=== PATIENT | male | born 1985 | race Caucasian/White ===

== ENCOUNTER 2017-07-25 13:57 | Emergency (ER) | payer SELFPAY ==
[2017-07-25] MEDS ORDERED: Dexamethasone 4 mg/ml Vial ONE (14:36)
== END 2017-07-25 15:31 | disposition home or self-care (01) ==
LOC: ERS 13:57
DX: J04.0 Acute laryngitis (principal); F17.210 Nicotine dependence, cigarettes, uncomplicated
CPT/HCPCS: 87081; 87430; 96372; J1100

== ENCOUNTER 2017-10-02 13:17 | Observation (INO) | payer SELFPAY ==
[2017-10-02] MEDS ORDERED: ISOVUE-370 76%-LOCM 1 ML ONE (13:55)
[2017-10-02 14:16] LABS: #Lymphocytes 1.1 thou/uL (1.20-3.40); #Monocytes 1.5 thou/uL (0.11-0.59); #Neutrophils 8.9 thou/uL (1.40-6.50); %Basophils 0.3 % (0.0-1.0); %Eosinophils 0.1 % (0.0-10.0); %Lymphocytes 9.6 % (21.0-51.0); %Monocytes 12.7 % (0.0-10.0); Hematocrit 49.5 % (42.0-52.0); Red Blood Cell (RBC) Count 5.63 mill/uL (4.70-6.10); White Blood Cell (WBC) Count 11.6 thou/uL (4.8-10.8)
[2017-10-02 14:34] LABS: ALT (SGPT) 22 U/L (8-55); AST (SGOT) 30 U/L (5-34); Alkaline Phosphatase 100 U/L (40-150); Anion Gap 14 mmol/L (10-20); BUN (Urea Nitrogen) 20 mg/dL (8.9-20.6); Bilirubin, Total 0.9 mg/dL (0.2-1.2); Calc. Creatinine Clearance 0 mL/min (70-130); Calcium 9.8 mg/dL (7.8-10.44); Carbon Dioxide 27 mmol/L (22-29); Chloride 95 mmol/L (98-107); Estimated GFR-MDRD 77; Globulin 4.1 g/dL (2.4-3.5); Protein, Total 8.2 g/dL (6.0-8.3)
--- NOTE | 2017-10-02 15:42 | CT ---
CT OF THE NECK SOFT TISSUES WITH CONTRAST 10/02/17 COMPARISON: None. HISTORY: Neck mass. TECHNIQUE: Multiple contiguous axial images were obtained in a CT of the neck with contrast. Sagittal and ramírez l reformats were performed. FINDINGS: There is a hypodense fluid collection in the anterior aspect of the midline of the neck just anterior to the thyroid cartilage and hyoid bone. This measures 4.2 x 2.8 x 2.2 cm in size and consistent wit h an abscess. Surrounding inflammatory changes are seen. Rim enhancement of this fluid collection is seen. No mucosal abnormality seen in the nasopharynx, oropharynx, hypopharynx, or subglottic regions. No si gnificantly enlarged cervical lymph nodes are seen. The visualized lung apices are unremarkable. The bones are unremarkable. The visualized intracranial structures are unremarkable. IMPRESSION: There is a midline neck mass which most likely represents an abscess. The most common cause for an ab scess in this location would be an infected thyroglossal duct cyst. POS: [facility]
[2017-10-02] MEDS ORDERED: Ketorolac Tromethamine 30 MG/ML VIAL ONE (17:29)
[2017-10-02] MEDS ORDERED: Dexamethasone 10 MG/ML VIAL ONE (17:29)
[2017-10-02] MEDS ORDERED: Clindamycin/D5W 900 mg/50 ml Premix Bag ONE (17:29)
[2017-10-02] MEDS ORDERED: Lidocaine 1% w/Epinephrine 1:100K 20 ML VIAL ONE (18:45)
[2017-10-02] MEDS ORDERED: Ondansetron HCl/PF 4 MG/2 ML Vial IVP PRN (20:16)
[2017-10-02] MEDS ORDERED: traMADol HCl 50 MG TAB PO PRN (20:17)
[2017-10-02] MEDS: Sodium Chloride 0.45% 1,000 ML IV SCH (20:41)
[2017-10-02 21:04] VITALS: BMI 22.4
--- NOTE | 2017-10-03 01:10 | HP ---
DATE OF ADMISSION: 10/02/2017 The patient is seen for evaluation of neck swelling. BRIEF HISTORY: This is a gentleman who has had a long history of a mass in his neck which he told th at a thyroglossal duct cyst. It has been quite for the past 15 to 20 years. He reports the past 2 d ays, he had some swelling and some tenderness in that area. He reports having some low grade fevers as well. He report some mild upper respiratory infection preceding this, he was not taking any antib iotics, he reported only taking Motrin and Tylenol otherwise, he presents to the emergency room. CT scan of the neck was performed, which shows a mass, midline of the neck consistent with a thyroglossa l duct cyst with gas bubbles present indicating infection. He denies any airway problems. He denies any dysphagia. He has a 3-year history of hoarseness. He smokes approximately 2 to 3 packs per day as noted his voice is scratchy, but it has remained unchanged in the past few days. PAST MEDICAL HISTORY: Noncontributory. PAST SURGICAL HISTORY: None. ALLERGIES: No known drug allergies. MEDICATIONS: None. FAMILY HISTORY: Noncontributory. SOCIAL HISTORY: 2 to 3 pack per day smoker, social drinker. REVIEW OF SYSTEMS: General: Low-grade fevers, chills, no weight loss. Heme: No history of bleedin g disorders. Cardiovascular: No chest pains, palpitations. Pulmonary: No cough and no wheeze. HE ENT: He has reported a recent upper respiratory tract infection, snotty nose and yellow snot. PHYSICAL EXAMINATION: GENERAL: Patient is resting comfortably in bed. Voice is of harsh quality, no inspiratory or expira tory stridor. NECK: There is some blanching erythema of the skin overlying the anterior mid neck with a 4 x 3 x 2 cm area of fluctuance in the area of thyroglossal duct cyst, no associated lymphadenopathy. Oral cav ity and oropharynx, mucosa is intact. Floor of mouth, base of tongue is soft, no evidence of edema. EARS: TMs intact. Middle ear is well aerated. NOSE: Nasal cavity is clear. HEART: Regular rate and rhythm without murmur. LUNGS: Clear to auscultation. LABORATORY STUDIES: White count of 11.5. TSH and free T4 within normal limits. PROCEDURE: After risks, benefits, and alternatives were discussed, thyroglossal duct cyst needle asp iration was performed. A 1% lidocaine was injected into the overlying skin with a 27 gauge needle an d then an 18 gauge needle was used to aspirate approximately 5 mL of purulence from this cyst cavity. The size of the cyst greatly diminished after this. ASSESSMENT: 1. Thyroglossal duct cyst with acute infection. 2. 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 PLAN: We are going to admit him for IV antibiotics overnight, he received 20 mg of Decadron already. He will be cleared for full liquids. Advance to soft diet tonight. We will reevaluate him tomorro w morning.
[2017-10-03] MEDS: Sodium Chloride 0.45% 1,000 ML IV SCH (01:18)
[2017-10-03] MEDS: Clindamycin/D5W 900 MG in Premix Bag 1 BAG IVPB SCH ×2 (01:18→10:21)
[2017-10-03 05:47] LABS: #Lymphocytes 0.7 thou/uL (1.20-3.40); #Monocytes 0.4 thou/uL (0.11-0.59); #Neutrophils 6.3 thou/uL (1.40-6.50); %Basophils 0.2 % (0.0-1.0); %Lymphocytes 9.2 % (21.0-51.0); %Monocytes 5.5 % (0.0-10.0); Hematocrit 44.3 % (42.0-52.0); Mean Platelet Volume 7.5 fL (7.4-10.4); Red Blood Cell (RBC) Count 4.99 mill/uL (4.70-6.10); White Blood Cell (WBC) Count 7.4 thou/uL (4.8-10.8)
[2017-10-03 12:30] VITALS: TEMP 97.6
[2017-10-03 12:55] VITALS: BP 106/67
--- NOTE | 2017-10-19 13:25 | EKG ---
Test Reason : STAT Blood Pressure : / mmHG Vent. Rate : 056 BPM Atrial Rate : 056 BPM P-R Int : 122 ms QRS Dur : 092 ms QT Int : 448 ms P-R-T Axes : 042 078 070 degrees QTc Int : 432 ms Sinus bradycardia with sinus arrhythmia Otherwise normal ECG No previous ECGs available Confirmed by HOLGER LEONARD MD ([id number]) on 10/19/2017 1:25:09 PM Referred By: MYKE Confirmed By:HOLGER LEONARD MD
== END 2017-10-03 14:20 | disposition home or self-care (01) ==
LOC: ERS 13:17 → SJJU 20:09
PROVIDERS: ADMIT Otolaryngology Plastic Surgery within the Head & Neck; ATTEND Otolaryngology Plastic Surgery within the Head & Neck
DX: Q89.2 Congenital malformations of other endocrine glands (principal); B99.9 Unspecified infectious disease; R49.0 Dysphonia; Z87.891 Personal history of nicotine dependence
CPT/HCPCS: 36415; 36416; 70491; 80053; 84443; 85025; 93005; 93010; 96361; 96365; 96366; 96375; G0378; J1100; J1885; J2001; J3490

== ENCOUNTER 2018-01-09 13:40 | Inpatient (IN) | payer OTHER ==
[~2018-01-09 13:40] MED LIST: Lidocaine 1% PF 5 ML VIAL ONE; Ondansetron HCl/PF 4 MG/2 ML Vial ONE; PHENYLEPHRINE-NS 100 MCG/ML 10 ML SYRINGE ONE; PROPOFOL 200 MG/20 ML VIAL ONE; Succinylcholine Chloride 20 MG/ML 10 ml SYRINGE FS ONE
[2018-01-09] MEDS ORDERED: EPINEPHrine 1 MG/ML AMP ONE (14:22)
[2018-01-09] MEDS ORDERED: Lidocaine 1% w/Epinephrine 1:200K 30 ML VIAL ONE (14:22)
[2018-01-09] MEDS ORDERED: Fentanyl 250 MCG/5 ML VIAL ONE (14:24)
[2018-01-09] MEDS ORDERED: Midazolam HCl 2 mg/2 ml Vial ONE ×2 (14:55→17:23)
[2018-01-09] MEDS ORDERED: Morphine 10 MG/ML VIAL SLOW IVP PRN (17:30)
[2018-01-09] MEDS ORDERED: ALPRAZolam 0.25 MG TAB PO PRN (18:09)
--- NOTE | 2018-01-09 18:28 | PDOC.PN ---
- Subjective Encounter Start Date: 01/09/18 Encounter Start Time: 18:25 Pt seen for management of medical comorbidities, including anxiety. Coughing up blood from tracheostomy site. Unable to answer questions, could not complete ROS. - Objective MAR Reviewed: Yes Vital Signs & Weight: Vital Signs (12 hours) Pulse Ox 01/09/18 17:11 99 Weight Weight 148 lb Phys Exam - Physical Examination Anxious Tracheostomy Respiratory: no wheezing, no rales, no rhonchi, clear to auscultation bilateral Cardiovascular: RRR, no rub Gastrointestinal: soft Neurological: moves all 4 limbs Deviation from normal: appears anxious Dx/Plan (1) Anxiety Code(s): F41.9 - ANXIETY DISORDER, UNSPECIFIED Status: Acute (2) Laryngeal cancer Status: Chronic - Plan * . ENT service recommends anxiolytics, ordered Xanax 0.25 mg PO TID PRN for now, watch for respiratory depression. Pt had apneic spells earlier. Review of Systems - Medications/Allergies Allergies/Adverse Reactions: Allergies Allergy/AdvReac Type Severity Reaction Status Date / Time No Known Drug Allergies Allergy Verified 01/08/18 15:40 Medications: Current Medications Hydrocodone Bitart/Acetaminophen (Hydrocodone-Apap 7.5-325/15) 25 ml PO Q4H PRN PRN Reason: Moderate Pain (4-6) Alprazolam (Xanax) 0.25 mg PO TIDPRN PRN PRN Reason: Anxiety Potassium Chloride/Dextrose/Sod Cl (D5 1/4 Ns W/20 Meq Kcl) 1,000 mls @ 125 mls /hr IV .Q8H CRISTINA Cefazolin Sodium 1 gm/ Syringe (2.5 ml/ Sterile Water) 10 mls @ 120 mls/hr SLOW IVP 1000,1800,2359 [facility] Stop: 01/10/18 18:01 Morphine Sulfate (Morphine) 2 mg SLOW IVP Q2H PRN PRN Reason: Moderate Pain (4-6)
[2018-01-09] MEDS: CEFAZOLIN 1 GM, Syringe 2.5 ML in Sterile Water 7.5 ML SLOW IVP SCH (18:47)
[2018-01-09] MEDS: D5 1/4 NS w/20 mEq KCL 1,000 ML IV SCH (20:00)
[2018-01-09] MEDS ORDERED: CEFAZOLIN 1 GM, Syringe 2.5 ML in Sterile Water 7.5 ML SLOW IVP SCH (22:00)
[2018-01-09] MEDS: Morphine 4 MG/ML VIAL SLOW IVP PRN (22:08)
--- NOTE | 2018-01-09 23:57 | CON ---
DATE OF CONSULTATION: 01/09/2018 Mr. Da Silva is a 32-year-old male He was admitted to the ICU after tracheostomy. Unfortunately, there is no history and physical in the medical record, so I am really not sure what led to his operation. He is unable to give the history because of fresh tracheostomy. I was asked to see him because of his presence in the ICU plus ongoing bleeding , plus most importantly ongoing significant neck pain, his surgical site. PAST MEDICAL HISTORY: Remarkable for a mass in his neck that apparently has been present for quite some time. A note from 2017 showed that he may have a thyroglossal duct cyst with infection back then. He is reportedly a smoker. There is no discharge summary from his admission in 09/2017, so I am really not sure what happened in that admission. ALLERGIES: No reported drug allergies. FAMILY HISTORY: Negative for lung disease. SOCIAL HISTORY: He has smoked up to 3 packs a day. REVIEW OF SYSTEMS: Not obtainable since he can speak. PHYSICAL EXAMINATION: GENERAL: He was tearful when I saw him. His heart rate was in the 70s. Blood pressure 128/81. Respiratory rate was in the teens. Oximetry is 100%. HEENT: Pupils are equal. Sclerae is anicteric. NECK: Supple. He had fresh tracheostomy, fresh blood around his tracheostomy. He was not in any distress. LUNGS: Remarkable for equal breath sounds. LUNGS: Clear. HEART: Regular rhythm. S1 and S2 are normal. ABDOMEN: Soft and nontender. EXTREMITIES: Without clubbing, cyanosis, or edema. NEUROLOGIC: Grossly nonfocal. LABORATORY DATA: White count 7.4, hemoglobin 14.9, platelets 174 this morning. Electrolytes last year were unremarkable except for sodium 131, there are no repeat electrolytes in the medical record system. IMPRESSION: Status post tracheostomy. From medical records, I cannot tell what was done. I will be happy following him while he is in the Critical Care Unit. I have adjusted his pain medicine as 2 mg of morphine likely will not control his pain. Critical care time was 30 minutes excluding procedures. [facility]
[2018-01-10] MEDS: CEFAZOLIN 1 GM, Syringe 2.5 ML in Sterile Water 7.5 ML SLOW IVP SCH ×3 (00:39→18:51)
[2018-01-10] MEDS: Morphine 4 MG/ML VIAL SLOW IVP PRN ×7 (01:42→23:57)
[2018-01-10] MEDS: D5 1/4 NS w/20 mEq KCL 1,000 ML IV SCH ×4 (04:52→23:00)
[2018-01-10] MEDS: Hydrocodone-Acetamin 15 ML UDCUP PO PRN (05:32)
[2018-01-10] MEDS: Nicotine 21 MG PATCH TD SCH (10:03)
[2018-01-10] MEDS: Famotidine 40 MG/4 ML VIAL SLOW IVP SCH (10:48)
[2018-01-10] MEDS ORDERED: ISOVUE-370 76%-LOCM 1 ML ONE (11:35)
--- NOTE | 2018-01-10 11:54 | PRG ---
DATE OF SERVICE: 01/10/2018 Mr. Da Silva is not having any bleeding this morning. He is still very depressed with a flat affect. PHYSICAL EXAMINATION: VITAL SIGNS: Heart rate 65, blood pressure 101/64, respiratory rate 13, oximetry is 99. LUNGS: Lungs are clear. HEART: Regular rhythm. ABDOMEN: Abdomen is soft and nontender. There is no lab today. I discussed Mr. Da Silva his care with his father by phone, although I do not really have any operativ e note that describes the findings in the operation. I have deferred that question to his surgeon. I do think it is appropriate to start him on antidepressants at this point in time, but he is complai corie of being afraid to swallow. It is a nonissue acutely but further down the road in the hospitali zation or discharge an anti-depression probably needs to be considered. He had significant bleeding when he arrived from the OR, so some blood work needs to be done in the morning. Overall, he appears to be stable at this point in time.
--- NOTE | 2018-01-10 15:49 | RAD ---
CHEST 2 VIEWS: Date: 01/10/18 HISTORY: Laryngeal cancer. Evaluate for possible metastasis. COMPARISON: None. FINDINGS: There is evidence of a tracheostomy. There is extensive subcutaneous emphysema. Refer to neck CT for further details. There appears to be air tracking along the mediastinum. Costophrenic angles are clear. No obvious masses or consolidation. No pneumothorax or osseous abnorma lities. IMPRESSION: Extensive subcutaneous emphysema and mediastinal air. Refer to CT for further detail. The aforementio karli air is presumed to be due to recent tracheostomy placement, postop day 1. POS: [facility]
--- NOTE | 2018-01-10 16:09 | CT ---
EXAM: PRE AND POSTCONTRAST SOFT TISSUE NECK CT 06/12/18 COMPARISON: 10/02/17 HISTORY: Neck mass. Tumor. Postoperative day 1 from placement of tracheostomy. FINDINGS: The visualized brain parenchyma is unremarkable. Bilateral ocular lenses are appropriately located. B oth globes are intact. Retrobulbar fat is preserved. Symmetric attenuation of the optic nerve and ocu lar rectus muscles. There is mucosal disease of the left sphenoid sinus. Aerodigestive tract is patent. There is no mucosal abnormality. epiglottis has a normal caliber. Pree piglottic fat is preserved. Posterior to the hyoid bone and anterior to the false and true focal cord s is heterogeneous enhancement and fluid attenuation/edema. There is abnormal attenuation of the soft tissues adjacent to the thyroid cartilage. There is abnormal attenuation involving the anterior neck subcutaneous fat and soft tissues. Drainable abscess is not appreciated at this time. Symmetric attenuation of the sternocleidomastoid muscles. Symmetric attenuation of the parotid and submandibular glands. Thyroid gland is unremarkable. No evidence of lymphadenopathy by size criteria. There is extensive subcutaneous emphysema involving multiple compartments of the anterior and posteri or neck. Subcutaneous emphysema extends inferiorly into the upper mediastinum. There is abnormal density in the anterior mediastinum which is nonspecific tracheostomy is noted with the distal tip in the proximal thoracic inlet. Central spinal canal is patent. No significant central canal stenosis or foraminal narrowing. IMPRESSION: 1. Interval placement of a tracheostomy which appears to be appropriately positioned within the trachea at the level of the thoracic inlet. Extensive soft tissue emphysema. Emphysema may be postope rative in nature. Correlate clinically. Short term followup chest radiograph is recommended to assess for resolution or progression of subcutaneous emphysema. 2. Soft tissue swelling and areas of abnormal enhancement and edema involving the anterior neck soft tissues as well the larynx. Post treatment changes are favored. Residual tumor in these regions cannot be excluded. A drainable abscess is not appreciated. Results of the study discussed with Dr. Pro, 01/10/18 at 3:52 p.m. POS: [facility]
--- NOTE | 2018-01-10 17:24 | PDOC.PN ---
- Subjective Encounter Start Date: 01/10/18 Encounter Start Time: 09:40 Pt seen for followup re: anxiety. Answering questions by nodding or shaking head. Appears calm. No chest pain, shortness of breath, fevers, chills, nausea or vomiting. - Objective MAR Reviewed: Yes Vital Signs & Weight: Vital Signs (12 hours) Temp Pulse Resp Pulse Ox 01/10/18 12:00 97.6 F 01/10/18 08:00 97.7 F 69 12 100 01/10/18 07:59 99 Weight Admit Weight 134 lb 14.766 oz Weight 138 lb 0.15 oz Most Recent Monitor Data Heart Rate from ECG 66 NIBP 105/63 NIBP BP-Mean 73 Respiration from ECG 11 SpO2 100 I&O: 01/09/18 01/10/18 01/11/18 06:59 06:59 06:59 Intake Total 859 1051 Output Total 525 1750 Balance 334 -699 Result Diagrams: 01/13/18 04:48 01/13/18 04:48 EKG Reviewed by me: Yes (Tele: NSR) Phys Exam - Physical Examination Constitutional: NAD Tracheostomy Neck: supple Respiratory: clear to auscultation bilateral Cardiovascular: RRR Gastrointestinal: soft Musculoskeletal: no edema Neurological: moves all 4 limbs Psychiatric: normal affect Dx/Plan (1) Anxiety Code(s): F41.9 - ANXIETY DISORDER, UNSPECIFIED Status: Acute Comment: continue Xanax PRN (2) Laryngeal cancer Status: Chronic - Plan * . Review of Systems - Medications/Allergies Allergies/Adverse Reactions: Allergies Allergy/AdvReac Type Severity Reaction Status Date / Time No Known Drug Allergies Allergy Verified 01/08/18 15:40 Medications: Current Medications Hydrocodone Bitart/Acetaminophen (Hydrocodone-Apap 7.5-325/15) 25 ml PO Q4H PRN PRN Reason: Moderate Pain (4-6) Last Admin: 01/10/18 05:32 Dose: 25 ml Alprazolam (Xanax) 0.25 mg PO TIDPRN PRN PRN Reason: Anxiety Famotidine (Pepcid) 20 mg SLOW IVP DAILY CRISTINA Last Admin: 01/10/18 10:48 Dose: 20 mg Potassium Chloride/Dextrose/Sod Cl (D5 1/4 Ns W/20 Meq Kcl) 1,000 mls @ 125 mls /hr IV .Q8H [facility] Last Admin: 01/10/18 12:53 Dose: 1,000 mls Cefazolin Sodium 1 gm/ Syringe (2.5 ml/ Sterile Water) 10 mls @ 120 mls/hr SLOW IVP 1000,1800,2359 [facility] Stop: 01/10/18 18:01 Last Admin: 01/10/18 10:03 Dose: 10 mls Morphine Sulfate (Morphine) 4 mg SLOW IVP Q1H PRN PRN Reason: Pain Last Admin: 01/10/18 16:19 Dose: 4 mg Nicotine (Nicoderm Patch) 21 mg TD DAILY [facility] Last Admin: 01/10/18 10:03 Dose: 21 mg Sodium Chloride (Flush - Normal Saline) 10 ml IVF Q12HR [facility] Last Admin: 01/10/18 08:47 Dose: 10 ml Sodium Chloride (Flush - Normal Saline) 10 ml IVF PRN PRN PRN Reason: Saline Flush
[2018-01-10] MEDS ORDERED: CEFAZOLIN 1 GM, Syringe 2.5 ML in Sterile Water 7.5 ML SLOW IVP SCH (18:15)
--- NOTE | 2018-01-10 18:31 | CON ---
DATE OF CONSULTATION: 01/10/2018 REASON FOR CONSULTATION: Mr. Da Silva is a 32-year-old gentleman who has been diagnosed with a possib le malignancy involving the neck and larynx. I was asked to see him to discuss his treatment options . HISTORY OF PRESENT ILLNESS: Mr. Da Silva is not able to give history because of his recent tracheosto my. In September, he presented to the emergency room with a mass that he had in the neck. Apparently , he had had it for quite some time. It did become tender and swollen and had some low grade fevers and so he presented to the ER and he underwent a CT scan of the neck in September which showed a mass in the anterior neck that measured 4.2 x 2.8 x 2.2 cm. This had rim enhancement with an internal flu id collection and surrounding inflammatory changes. This was felt to be most consistent with an absc ess from an infected thyroglossal duct cyst. He was admitted to the hospital and he did have aspirat ion and apparently purulent material had been obtained and the neck mass got smaller. He apparently was discharged home on antibiotics. There is no discharge summary in the hospital EMR, so it is uncl ear what the follow up was at that time. The patient is not able to give history because of his rece nt tracheostomy. He apparently was seen by Dr. Pro recently because of this neck mass. 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 Yesterday, he underwent a laryngoscopy and tracheostomy. I do no t have the operative report, but pictures that are in the chart show a mass involving the anterior as pect of the larynx with narrowing of the airway. Biopsies were performed from the neck mass and thos e are currently pending. He just underwent a CT scan prior to my seeing him. I have been asked to s ee him to discuss his options for treatment. Presently, his only complaint is of pain in the neck. The nurse reports that the patient stated it mostly felt like bad reflux. PAST MEDICAL HISTORY: The patient denies other medical or surgical problems. MEDICATIONS: Cefazolin, hydrocodone p.r.n., morphine p.r.n., Nicoderm patch, and IV fluids. ALLERGIES: No known medical allergies. SOCIAL HISTORY: The patient was smoking up to 3 packs per day. He stopped smoking prior to his admi ssion. He has no alcohol use. He lives in [place], [place]. He lives with his stepfather. He is uninsu red. FAMILY HISTORY: Negative for malignancy. REVIEW OF SYSTEMS: Remainder of review of system is otherwise negative. PHYSICAL EXAMINATION: VITAL SIGNS: Height 5 feet 11 inches, weight 138 pounds, blood pressure is 119/63, pulse is 67, resp irations are 13, temperature was 97.6. GENERAL: He is alert and oriented, and in mild discomfort in the neck. Breathing is not labored. K arnofsky performance status is 70%. EYES: Pupils equal, round, reactive to light. Extraocular movements are intact. ENT: Oral cavity and oropharynx normal without lesion or erythema. Palate elevates symmetrically. Gingiva is intact. Dentition is fair. NECK: Without preauricular, submandibular, cervical, or supraclavicular adenopathy. He does have an anterior neck mass that is firm and does not have discrete borders. Involves much of the anterior n erma. Just below this is a tracheostomy that appears to be healing well. There is no thyromegaly. L arynx midline. LUNGS: Breathing nonlabored. Clear to auscultation. HEART: Regular rate and rhythm without murmur. ABDOMEN: No lower extremity edema. Radial and pedal pulses are good. LYMPHATIC: No axillary or inguinal adenopathy. ABDOMEN: Bowel sounds present. Soft, nontender, nondistended, without mass or hepatosplenomegaly. Liver percussed to normal size. SKIN: Without rash or purpura. NEUROLOGIC: Cranial nerves II-XII grossly intact. Motor strength 5/5 in both upper and lower extrem ities in all muscle groups tested. Reflexes are normal and symmetrical. Gait is normal. RADIOLOGIC: CT scan from 10/02/2017 was personally reviewed and did show a rim enhancing mass with f luid density in the anterior tissues of the neck. There is no other adenopathy and did not appear to be any mass lesion involving the larynx at that time. CT scan performed just prior to seeing him on 01/10/2018 was also personally reviewed. There was a heterogeneous enhancing mass involving the ant erior neck and involving the larynx. It is anterior to the false and true cords. There was abnormal attenuation of the soft tissues adjacent to the thyroid cartilage. No evidence of lymphadenopathy w as seen. LABORATORY: No recent lab work is in the hospital record system. CBC from 09/2017 revealed white bl ood cell count of 7400 with hemoglobin of 14.9, hematocrit of 44.3, platelet count 174,000. Chemistr y group showed sodium of 131. Again, this is also from September. Electrolytes were otherwise normal . Fine needle aspirate from the anterior neck mass was on 01/07/2018 was highly suspicious for squam ous cell carcinoma. ASSESSMENT: Mr. Da Silva is a 32-year-old gentleman who likely has a malignancy involving the anterio r neck. Even though he has a long history of smoking, it is not certain that this actually represent s a laryngeal cancer. Given the history, I think most likely this represents a malignancy involving the anterior neck, possibly from a degenerated thyroglossal duct cyst that has grown down into the la rynx and was causing airway compromise. He has a tracheostomy placement. There is no apparent adeno isael on the CT scan. PLAN: He will get supportive care for the time being. We are waiting the results of his pathology b efore final decision can be made regarding treatment. He is going to be seen by medical oncology. L misael, the treatment is going to involve chemotherapy and radiation. Surgery would likely not be a g ood option as this would require an extensive resection, removing the larynx and the skin of the ante rior neck and subsequent reconstructive surgery for closure. Complicating all of this is the fact th at the patient has no insurance. We will follow the patient with you and we will make recommendation s as we get the pathology report. We will discuss the case with Medical Oncology as well. The patie nt will likely be presented at our multimodality cancer conference. Thank you for this interesting consultation.
[2018-01-11 02:20] VITALS: BMI 19.2
[2018-01-11] MEDS: Morphine 4 MG/ML VIAL SLOW IVP PRN ×2 (04:17→08:30)
[2018-01-11 05:08] LABS: Anion Gap 10 mmol/L (10-20); BUN (Urea Nitrogen) 7 mg/dL (8.9-20.6); Calc. Creatinine Clearance 109 mL/min (70-130); Calcium 9.5 mg/dL (7.8-10.44); Carbon Dioxide 31 mmol/L (22-29); Chloride 96 mmol/L (98-107); Estimated GFR-MDRD Greater than 90; Glucose 98 mg/dL (70-105); Potassium 4.3 mmol/L (3.5-5.1); Sodium 133 mmol/L (136-145)
[2018-01-11 05:23] LABS: Hemoglobin 14.5 g/dL (14.0-18.0); Lymphocytes 8 % (21-51); MDiff Complete? YES; Mean Corpuscular HGB CONC 32.5 g/dL (32.0-36.0); Mean Corpuscular Hemoglobin 28.7 pg (27.0-31.0); Mean Corpuscular Volume 88.3 fl (80.0-94.0); Mean Platelet Volume 6.3 fL (7.4-10.4); Monocytes 6 % (0-10); Neutrophil 86 % (42-75); PLT Morphology Comment Appears Adequate; Platelet Count 268 thou/uL (130-400); RBC Morphology Normal; Red Blood Cell (RBC) Count 5.06 mill/uL (4.70-6.10); White Blood Cell (WBC) Count 11.2 thou/uL (4.8-10.8)
[2018-01-11] MEDS: Famotidine 40 MG/4 ML VIAL SLOW IVP SCH (08:32)
[2018-01-11] MEDS: Nicotine 21 MG PATCH TD SCH (08:34)
--- NOTE | 2018-01-11 11:18 | PRG ---
DATE OF SERVICE: 01/11/2018 SUBJECTIVE: He is sleeping. When awakened, he indicates that he is in no distress. OBJECTIVE: VITAL SIGNS: Temperature 98.4, pulse 92, respirations 12, O2 sat 100% on 5 liters, and blood pressur e 110/77. HEENT: Unremarkable. NECK: Trach in position with swelling around tracheostomy site. LUNGS: Clear. CARDIAC: S1 and S2, regular. ABDOMEN: Soft. EXTREMITIES: No edema. LABORATORY DATA: Sodium 132, potassium 4.3, chloride 96, CO2 of 31, BUN 7, creatinine 0.8, glucose 9 8. White blood cell count 11.2, hematocrit 44, and platelet count 268. ASSESSMENT: 1. Status post tracheostomy. 2. Neck malignancy - I think pathology is back. PLAN: Pulmonary status is currently stable. I appreciate care for other consultants involved in the case. No new recommendations at this time.
[2018-01-11] MEDS: Hydrocodone-Acetamin 15 ML UDCUP PO PRN ×3 (12:56→23:49)
--- NOTE | 2018-01-11 16:48 | PDOC.PN ---
- Subjective Encounter Start Date: 01/11/18 Encounter Start Time: 16:46 Subjective: feels Ok. no new complaints. pain controlled - Objective MAR Reviewed: Yes Vital Signs & Weight: Vital Signs (12 hours) Temp Pulse Resp BP Pulse Ox 01/11/18 16:00 98.8 F 71 16 103/68 98 01/11/18 11:00 99 F 99 16 103/69 97 01/11/18 08:00 98.4 F 92 12 01/11/18 07:20 98.4 F 92 12 110/77 100 Weight Admit Weight 134 lb 14.766 oz Weight 138 lb Most Recent Monitor Data Heart Rate from ECG 66 NIBP 105/63 NIBP BP-Mean 73 Respiration from ECG 11 SpO2 100 I&O: 01/10/18 01/11/18 01/12/18 06:59 06:59 06:59 Intake Total 859 2151 Output Total 525 1750 Balance 334 401 Result Diagrams: 01/11/18 04:46 01/11/18 04:46 Phys Exam - Physical Examination Constitutional: NAD HEENT: PERRLA, moist MMs, sclera anicteric, TM's clear, oral pharynx no lesions , 2+ tonsils Neck: no nodes, no JVD, supple, full ROM Respiratory: no wheezing, no rales, no rhonchi, wheezing present, clear to auscultation bilateral Cardiovascular: RRR, no significant murmur Gastrointestinal: soft, non-tender, no distention, positive bowel sounds Musculoskeletal: no edema, pulses present Neurological: non-focal, normal sensation, moves all 4 limbs Psychiatric: normal affect, A&O x 3 Skin: no rash Dx/Plan (1) Tracheostomy hemorrhage Code(s): J95.01 - HEMORRHAGE FROM TRACHEOSTOMY STOMA Status: Acute (2) Anxiety Code(s): F41.9 - ANXIETY DISORDER, UNSPECIFIED Status: Acute Comment: continue Xanax PRN (3) Laryngeal cancer Status: Chronic - Plan DVT proph w/SCDs Repeat pathology pending.HD stable pain controlled. -: PCCM & radiation Oncology following. -: paucity of data w/o any documentation from primary ENT team.no H/P/notes -: no medical issues.will sign off -: cont Xanax prn. call if needed. * . Review of Systems - Review of Systems Constitutional: negative: fever, chills, sweats, weakness, malaise, other ENT: negative: Ear Pain, Ear Discharge, Nose Pain, Nose Discharge, Nose Congestion, Mouth Pain, Mouth Swelling, Throat Pain, Throat Swelling, Other Respiratory: negative: Cough, Dry, Shortness of Breath, Hemoptysis, SOB with Excertion, Pleuritic Pain, Sputum, Wheezing Cardiovascular: negative: chest pain, palpitations, orthopnea, paroxysmal nocturnal dyspnea, edema, light headedness, other Gastrointestinal: negative: Nausea, Vomiting, Abdominal Pain, Diarrhea, Constipation, Melena, Hematochezia, Other Genitourinary: negative: Dysuria, Frequency, Incontinence, Hematuria, Retention , Other Musculoskeletal: negative: Neck Pain, Shoulder Pain, Arm Pain, Back Pain, Hand Pain, Leg Pain, Foot Pain, Other Skin: negative: Rash, Lesions, Michael, Bruising, Other Neurological: negative: Weakness, Numbness, Incoordination, Change in Speech, Confusion, Seizures, Other - Medications/Allergies Allergies/Adverse Reactions: Allergies Allergy/AdvReac Type Severity Reaction Status Date / Time No Known Drug Allergies Allergy Verified 01/08/18 15:40 Medications: Current Medications Hydrocodone Bitart/Acetaminophen (Hydrocodone-Apap 7.5-325/15) 25 ml PO Q4H PRN PRN Reason: Moderate Pain (4-6) Last Admin: 01/11/18 12:56 Dose: 25 ml Alprazolam (Xanax) 0.25 mg PO TIDPRN PRN PRN Reason: Anxiety Famotidine (Pepcid) 20 mg SLOW IVP DAILY [facility] Morphine Sulfate (Morphine) 4 mg SLOW IVP Q1H PRN PRN Reason: Pain Last Admin: 01/11/18 08:30 Dose: 4 mg Nicotine (Nicoderm Patch) 21 mg TD DAILY [facility] Last Admin: 01/11/18 08:34 Dose: 21 mg Sodium Chloride (Flush - Normal Saline) 10 ml IVF Q12HR CRISTINA Last Admin: 01/11/18 08:36 Dose: 10 ml Sodium Chloride (Flush - Normal Saline) 10 ml IVF PRN PRN PRN Reason: Saline Flush Last Admin: 01/10/18 23:58 Dose: 10 ml
[2018-01-11] MEDS: D5 1/4 NS w/20 mEq KCL 1,000 ML IV SCH (17:57)
[2018-01-12 04:30] LABS: Band 2 % (5-11); Eosinophils 2 % (0-10); Lymphocytes 19 % (21-51); MDiff Complete? YES; Mean Corpuscular HGB CONC 32.4 g/dL (32.0-36.0); Mean Corpuscular Hemoglobin 28.1 pg (27.0-31.0); Mean Corpuscular Volume 86.7 fl (80.0-94.0); Mean Platelet Volume 6.4 fL (7.4-10.4); Monocytes 14 % (0-10); Neutrophil 63 % (42-75); PLT Morphology Comment Appears Adequate; Platelet Count 271 thou/uL (130-400); Red Blood Cell (RBC) Count 4.99 mill/uL (4.70-6.10); White Blood Cell (WBC) Count 8.6 thou/uL (4.8-10.8)
[2018-01-12 04:31] LABS: Anion Gap 8 mmol/L (10-20); BUN (Urea Nitrogen) 12 mg/dL (8.9-20.6); Calc. Creatinine Clearance 109 mL/min (70-130); Calcium 9.2 mg/dL (7.8-10.44); Carbon Dioxide 35 mmol/L (22-29); Chloride 100 mmol/L (98-107); Estimated GFR-MDRD Greater than 90; Glucose 82 mg/dL (70-105); Sodium 139 mmol/L (136-145)
[2018-01-12] MEDS: Hydrocodone-Acetamin 15 ML UDCUP PO PRN ×4 (05:36→21:55)
[2018-01-12] MEDS: Nicotine 21 MG PATCH TD SCH (09:11)
[2018-01-12] MEDS: Famotidine/PF 20 mg/2ml Vial SLOW IVP SCH (09:14)
--- NOTE | 2018-01-12 11:02 | PRG ---
DATE OF SERVICE: 01/12/2018 SUBJECTIVE: He seems to be doing well, does not indicate any difficulty with his trach. OBJECTIVE: VITAL SIGNS: Temperature 97.6, pulse 71, respirations 16, O2 sat 99% on tracheostomy collar. HEENT: Unremarkable. NECK: Trach in good position. LUNGS: Clear. CARDIAC: S1 and S2 regular. ABDOMEN: Soft. EXTREMITIES: No edema. LABORATORY DATA: White blood cell count 8.6, hematocrit 43.2, platelet count 271. Sodium 139, potas sium 4, BUN 12, creatinine 0.8, glucose 82. ASSESSMENT: Status post tracheostomy placement for airway compromise related to cancer of the neck a maddy. PLAN: Awaiting pathology, continuing trach suctioning.
[2018-01-13] MEDS: Hydrocodone-Acetamin 15 ML UDCUP PO PRN ×3 (03:00→20:37)
[2018-01-13 05:52] LABS: Anion Gap 13 mmol/L (10-20); BUN (Urea Nitrogen) 10 mg/dL (8.9-20.6); Calc. Creatinine Clearance 116 mL/min (70-130); Calcium 9.1 mg/dL (7.8-10.44); Carbon Dioxide 27 mmol/L (22-29); Chloride 101 mmol/L (98-107); Estimated GFR-MDRD Greater than 90; Glucose 100 mg/dL (70-105); Potassium 4.7 mmol/L (3.5-5.1); Sodium 136 mmol/L (136-145)
[2018-01-13 06:01] LABS: Band 3 % (5-11); Eosinophils 1 % (0-10); Hemoglobin 13.9 g/dL (14.0-18.0); Lymphocytes 25 % (21-51); MDiff Complete? YES; Mean Corpuscular HGB CONC 31.4 g/dL (32.0-36.0); Mean Corpuscular Hemoglobin 27.2 pg (27.0-31.0); Mean Corpuscular Volume 86.4 fl (80.0-94.0); Mean Platelet Volume 6.4 fL (7.4-10.4); Monocytes 6 % (0-10); Neutrophil 63 % (42-75); PLT Morphology Comment Appears Adequate; Platelet Count 300 thou/uL (130-400); RBC Distribution Width 12.9 % (11.5-14.5); RBC Morphology Normal; Reactive Lymphocytes 2 % (0-10); Red Blood Cell (RBC) Count 5.11 mill/uL (4.70-6.10); White Blood Cell (WBC) Count 8.7 thou/uL (4.8-10.8)
[2018-01-13] MEDS: Morphine 4 MG/ML VIAL SLOW IVP PRN (09:18)
[2018-01-13] MEDS: Nicotine 21 MG PATCH TD SCH (09:18)
[2018-01-13] MEDS: Famotidine/PF 20 mg/2ml Vial SLOW IVP SCH (09:18)
--- NOTE | 2018-01-13 14:34 | CON ---
DATE OF CONSULTATION: 01/13/2018 REASON FOR CONSULTATION: Neck mass. HISTORY OF PRESENT ILLNESS: Mr. Da Silva is a 32-year-old male who presented to the emergency room in September with a neck mass. It was tender and swollen. He had fevers. He had a CT scan of the mass at that time, which measured 4.2 x 2.8 x 2.2 cm. He was admitted and started on antibiotics. He was seen by ENT and had aspiration of purulent material from the mass. I do not know if he followed up after discharge on 01/07. He saw Dr. Pro in a clinic. He had a laryngoscopy, which found a cauliflower lesion at the base of the epiglottis and invading the vocal cord. He was sent here and had an emergent trach. Biopsies were done and are currently pending. The patient is recovering from his trach at this time and able to swallow and speak without a Passy-Gillett valve. He denies any complaints except discomfort from the tracheostomy. He denies any recent weight loss. He is a smoker, approximately 3 packs a day. Denies any alcohol use. PAST MEDICAL HISTORY: None. PAST SURGICAL HISTORY: Tracheostomy. ALLERGIES: No known drug allergies. HOME MEDICATIONS: None. FAMILY HISTORY: No family history of head and neck cancer. SOCIAL HISTORY: He is single. A 3-pack a day smoker. No alcohol. 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 REVIEW OF SYSTEMS: Ten-point review of systems is negative except for noted in HPI. PHYSICAL EXAMINATION: VITAL SIGNS: Temperature is 98.5, pulse is 77, respiratory rate 12 and blood pressure is 111/71. He is 100% on room air. GENERAL: A well-developed, well-nourished male in no acute distress. HEENT: Normocephalic and atraumatic. Pupils are equal and reactive to light. NECK: He has a trach midline. CARDIOVASCULAR: Regular rate and rhythm. LUNGS: Clear. ABDOMEN: Soft and nontender. There is no organomegaly. EXTREMITIES: No clubbing, cyanosis or edema. SKIN: No rash. HEMATOLOGIC: There is no petechia or purpura. NEUROLOGIC: Nonfocal. PSYCHIATRIC: The patient is alert and oriented and appropriate. PERTINENT LABORATORY AND X-RAYS: Current WBCs are 8.7, hemoglobin 13.9, hematocrit 44.1 and platelet count is 300. He has got 63% neutrophils, 3% bands and 25% lymphocytes. Sodium is 136, potassium 4.7, chloride 101, CO2 is 27, BUN is 10, creatinine 0.80, glucose [address] showed the anterior neck soft tissue mass. 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 Path is pending. DISCUSSION: The patient will follow up with Dr. Ash in the clinic on 2017 at 9:15 in the morning to discuss treatment options. The corrections caseworker will be notified of the patient to assist with financial issues. He has already been seen by Dr. Lott. Thank you for the consult. ISAURA
--- NOTE | 2018-01-13 14:41 | PRG ---
DATE OF SERVICE: 01/13/2018 SUBJECTIVE: Mr. Da Silva has no complaints. His spirits are little better today. OBJECTIVE: VITAL SIGNS: He is afebrile. Heart rate is 77, respiratory rate is 12, oximetry is 100% on trach co llar and blood pressure 111/71. LUNGS: Clear. He has strong cough and is easily clearing his secretions. IMPRESSION: Status post tracheostomy for head and neck cancer? Pathology is still pending.
[2018-01-14 06:23] LABS: Eosinophils 4 % (0-10); Hemoglobin 14.3 g/dL (14.0-18.0); Lymphocytes 22 % (21-51); MDiff Complete? YES; Mean Corpuscular HGB CONC 32.7 g/dL (32.0-36.0); Mean Corpuscular Volume 85.6 fl (80.0-94.0); Mean Platelet Volume 6.4 fL (7.4-10.4); Monocytes 6 % (0-10); Neutrophil 68 % (42-75); PLT Morphology Comment Appears Adequate; Platelet Count 327 thou/uL (130-400); RBC Distribution Width 12.8 % (11.5-14.5); Red Blood Cell (RBC) Count 5.12 mill/uL (4.70-6.10)
[2018-01-14 06:27] LABS: Anion Gap 13 mmol/L (10-20); BUN (Urea Nitrogen) 15 mg/dL (8.9-20.6); Calc. Creatinine Clearance 116 mL/min (70-130); Calcium 9.7 mg/dL (7.8-10.44); Carbon Dioxide 28 mmol/L (22-29); Chloride 100 mmol/L (98-107); Estimated GFR-MDRD Greater than 90; Glucose 94 mg/dL (70-105); Potassium 4.6 mmol/L (3.5-5.1); Sodium 136 mmol/L (136-145)
[2018-01-14] MEDS: Hydrocodone-Acetamin 15 ML UDCUP PO PRN ×2 (07:42→18:47)
[2018-01-14] MEDS: Nicotine 21 MG PATCH TD SCH (08:33)
[2018-01-14] MEDS: Famotidine/PF 20 mg/2ml Vial SLOW IVP SCH (08:33)
--- NOTE | 2018-01-14 16:12 | PRG ---
DATE OF SERVICE: 01/14/2018 His vital signs are stable. No new problems reported. He did have squamous cell carcinoma. It is u nclear at this time whether or not this is papilloma virus related. His heart rate is 90, respirator y rate is 15, oximetry is 100% on room air, blood pressure is 92/59. There are no new other pertinen t issues at this point in time. He is tentatively scheduled for an evaluation for chemo and radiatio n per my discussion with the nurse practitioner for the oncologists. I will see him as needed in the future.
[2018-01-15 06:07] LABS: Anion Gap 11 mmol/L (10-20); BUN (Urea Nitrogen) 19 mg/dL (8.9-20.6); Calc. Creatinine Clearance 109 mL/min (70-130); Calcium 9.4 mg/dL (7.8-10.44); Carbon Dioxide 29 mmol/L (22-29); Chloride 100 mmol/L (98-107); Estimated GFR-MDRD Greater than 90; Glucose 97 mg/dL (70-105); Potassium 4.9 mmol/L (3.5-5.1); Sodium 135 mmol/L (136-145)
[2018-01-15 06:28] LABS: Eosinophils 2 % (0-10); Hemoglobin 14.4 g/dL (14.0-18.0); Lymphocytes 22 % (21-51); MDiff Complete? YES; Mean Corpuscular HGB CONC 32.3 g/dL (32.0-36.0); Mean Corpuscular Hemoglobin 28.1 pg (27.0-31.0); Mean Corpuscular Volume 86.9 fl (80.0-94.0); Mean Platelet Volume 6.5 fL (7.4-10.4); Monocytes 9 % (0-10); Neutrophil 65 % (42-75); PLT Morphology Comment Appears Adequate; Platelet Count 309 thou/uL (130-400); RBC Distribution Width 12.7 % (11.5-14.5); RBC Morphology Normal; Reactive Lymphocytes 2 % (0-10); Red Blood Cell (RBC) Count 5.11 mill/uL (4.70-6.10)
[2018-01-15] MEDS: Famotidine/PF 20 mg/2ml Vial SLOW IVP SCH (09:13)
[2018-01-15] MEDS: Nicotine 21 MG PATCH TD SCH (09:14)
[2018-01-16 06:12] LABS: Eosinophils 1 % (0-10); Hemoglobin 14.7 g/dL (14.0-18.0); Lymphocytes 21 % (21-51); MDiff Complete? YES; Mean Corpuscular HGB CONC 32.9 g/dL (32.0-36.0); Mean Corpuscular Hemoglobin 28.7 pg (27.0-31.0); Mean Corpuscular Volume 87.3 fl (80.0-94.0); Mean Platelet Volume 6.6 fL (7.4-10.4); Monocytes 6 % (0-10); Neutrophil 70 % (42-75); Platelet Count 317 thou/uL (130-400); RBC Distribution Width 12.8 % (11.5-14.5); Red Blood Cell (RBC) Count 5.13 mill/uL (4.70-6.10); White Blood Cell (WBC) Count 8.4 thou/uL (4.8-10.8)
[2018-01-16 06:19] LABS: Anion Gap 11 mmol/L (10-20); BUN (Urea Nitrogen) 17 mg/dL (8.9-20.6); Calc. Creatinine Clearance 107 mL/min (70-130); Calcium 9.6 mg/dL (7.8-10.44); Carbon Dioxide 29 mmol/L (22-29); Chloride 102 mmol/L (98-107); Estimated GFR-MDRD Greater than 90; Glucose 98 mg/dL (70-105); Sodium 137 mmol/L (136-145)
[2018-01-16] MEDS: Famotidine/PF 20 mg/2ml Vial SLOW IVP SCH (09:39)
[2018-01-16] MEDS: Nicotine 21 MG PATCH TD SCH (09:39)
[2018-01-16 12:14] VITALS: TEMP 98.5
[2018-01-16 15:53] VITALS: BP 113/75
--- NOTE | 2018-01-17 13:02 | OP ---
PREOPERATIVE DIAGNOSES: 1. Obstructive laryngeal lesion. 2. Neck mass. 3. Trending upper airway obstruction. PROCEDURES PERFORMED: 1. Microsuspension laryngoscopy with biopsy. 2. Tracheostomy. FINDINGS: The patient had extensive tumor involving false cords, true vocal cords and laryngeal surf dayna of the epiglottis. This tumor appeared to be almost papillomatous in appearance and multifocal. There also was a firm mass at the anterior aspect of the neck with a draining fistula. PROCEDURE IN DETAIL: After consent was obtained, the patient was identified, brought to the operatin g room and placed on the table in supine position. General endotracheal anesthesia was obtained with some difficulty using a very small #6 endotracheal tube. We then positioned the patient for laryngo scopy. The laryngoscope was placed and suspended from the operating table. We were then able to use Magnified endoscopes to visualize the larynx. Pictures were obtained that revealed the extent of th e tumor, which involved both false cords, both true cords, and the laryngeal surface of the epiglotti s. There seemed to be a papillomatous quality to these masses and they were multifocal in nature. S pecimens were obtained of two sides, the false cords and epiglottic lesion, sent for permanent histol ogic evaluation. We kept the tube in place and turned our attention to the neck, which was prepped a nd draped in a sterile fashion. An incision was made through the skin and subcutaneous tissues in th e region proximal to the inferior aspect of the mass. The skin was incised and the incision was joe ied down through the skin, platysma, and subcutaneous tissues. The thyroid isthmus was identified an d divided in midline, gaining access to the pretracheal plane. This was then dissected and retractor s were placed. The cricoid hook was placed in cricoid and the trachea was elevated from the larynx. We then made an incision in the second endotracheal ring, and then created an inferior based flaps. Trach house calls nurse was then placed and #8 endotracheal cuffed tube was placed with the cuff inflated. T he apparatus was connected and there was good ventilation. The trach was secured with #2-0 silk sutu re and the trach stay tie. The patient was then awakened and taken to the Intensive Care Unit where he recovered prior to transfer to the floor. No complications.
== END 2018-01-16 18:36 | disposition home health service (06) | DRG 12 ==
LOC: SDC 13:40 → CCU 15:00 → SURG A 01-10 16:23
PROVIDERS: ADMIT Specialist; ATTEND Specialist
PROC: 0B110F4 Bypass Trachea to Cutaneous with Tracheostomy Device, Open Approach (ICD-10-PCS; principal; 2018-01-09)
PROC: 0CBR8ZX Excision of Epiglottis, Via Natural or Artificial Opening Endoscopic, Diagnostic (ICD-10-PCS; 2018-01-09)
PROC: 0CBS8ZX Excision of Larynx, Via Natural or Artificial Opening Endoscopic, Diagnostic (ICD-10-PCS; 2018-01-09)
DX: C32.8 Malignant neoplasm of overlapping sites of larynx (principal); J95.01 Hemorrhage from tracheostomy stoma; R06.81 Apnea, not elsewhere classified; C76.0 Malignant neoplasm of head, face and neck; F17.210 Nicotine dependence, cigarettes, uncomplicated; F32.9 Major depressive disorder, single episode, unspecified; Q89.2 Congenital malformations of other endocrine glands; F41.9 Anxiety disorder, unspecified
CPT/HCPCS: 36415; 70492; 71046; 80048; 85007; 85027; 88305; 88342; 94640; A4216; J0171; J0690; J2001; J2250; J2270; J2405; J2704; J3010; S0028

== ENCOUNTER 2018-01-24 13:52 | Emergency (ER) | payer SELFPAY | END 2018-01-24 14:37 | disposition left against medical advice (07) | LOC: SCSER 13:52 | DX: Z53.21 Procedure and treatment not carried out due to patient leaving prior to being seen by health care provider (principal) ==

== ENCOUNTER 2018-01-30 10:18 | Outpatient (CLI) | payer MEDICAID, OTHER, SELFPAY ==
[2018-01-30] MEDS ORDERED: ISOVUE-370 76%-LOCM 1 ML ONE (13:53)
== END 2018-01-30 10:19 | disposition home or self-care (01) ==
LOC: BICCT 10:18
PROVIDERS: ATTEND Internal Medicine Hematology & Oncology
DX: C32.8 Malignant neoplasm of overlapping sites of larynx (principal)
CPT/HCPCS: 71260

== ENCOUNTER 2018-02-03 00:35 | Inpatient (IN) | payer SELFPAY ==
[2018-02-03 01:27] LABS: #Eosinphils 0.1 thou/uL (0.0-0.7); #Lymphocytes 1.6 thou/uL (1.20-3.40); #Neutrophils 16.6 thou/uL (1.40-6.50); %Basophils 0.2 % (0.0-1.0); %Eosinophils 0.3 % (0.0-10.0); %Lymphocytes 8.5 % (21.0-51.0); %Monocytes 5.2 % (0.0-10.0); %Neutrophils 85.9 % (42.0-75.0); Hemoglobin 13.7 g/dL (14.0-18.0); Mean Corpuscular HGB CONC 33.1 g/dL (32.0-36.0); Mean Corpuscular Hemoglobin 28.1 pg (27.0-31.0); Mean Corpuscular Volume 84.9 fl (80.0-94.0); Platelet Count 377 thou/uL (130-400); RBC Distribution Width 12.9 % (11.5-14.5); Red Blood Cell (RBC) Count 4.86 mill/uL (4.70-6.10); White Blood Cell (WBC) Count 19.3 thou/uL (4.8-10.8)
[2018-02-03 01:45] LABS: ALT (SGPT) 8 U/L (8-55); AST (SGOT) 9 U/L (5-34); Albumin 4.1 g/dL (3.5-5.0); Alkaline Phosphatase 94 U/L (40-150); Anion Gap 14 mmol/L (10-20); BUN (Urea Nitrogen) 19 mg/dL (8.9-20.6); Bilirubin, Total 0.2 mg/dL (0.2-1.2); Calc. Creatinine Clearance 0 mL/min (70-130); Calcium 9.6 mg/dL (7.8-10.44); Carbon Dioxide 28 mmol/L (22-29); Chloride 97 mmol/L (98-107); Estimated GFR-MDRD 76; Globulin 3.7 g/dL (2.4-3.5); Glucose 212 mg/dL (70-105); Potassium 4.5 mmol/L (3.5-5.1); Protein, Total 7.8 g/dL (6.0-8.3); Sodium 134 mmol/L (136-145)
[2018-02-03] MEDS ORDERED: Morphine 4 MG/ML VIAL ONE (02:01)
[2018-02-03] MEDS ORDERED: Piperacillin/Tazobactam 4.5 GM VIAL ONE (03:40)
[2018-02-03] MEDS ORDERED: Acetaminophen 325 MG TAB PO PRN (04:23)
--- NOTE | 2018-02-03 04:25 | PDOC.FPRHP ---
- History of Present Illness Chief Complaint: Infected trach History of Present Illness: 32 yo M w/hx of SCC of larynx s/p trach placement apprx 3 weeks ago here with concern for infection associated with the trach. He states that the ostomy has had purulent drainage for the past few days. Associated symptoms include tenderness and redness around the trach site. He denies other symptoms such as SOB, fever, chills, increased work of breathing, cough or wheezing. - Allergies/Adverse Reactions Allergies Allergy/AdvReac Type Severity Reaction Status Date / Time No Known Drug Allergies Allergy Verified 01/08/18 15:40 - Home Medications Medication Instructions Recorded Confirmed Type traMADol HCl [Tramadol HCl] 1 - 2 mg PO Q4HR PRN 01/13/18 01/13/18 History - History PMHx: Laryngeal SCC PSHx: none FHx: none Social: 10+ pack year hx of smoking Denies etoh or recreational drug use - Review of Systems General: denies: fever/chills, weight/appetite/sleep changes Eyes: denies: eye pain, vision changes ENT: denies: nasal congestion Respiratory: denies: cough, congestion, shortness of breath Cardiovascular: denies: chest pain, palpitation, edema Gastrointestinal: denies: nausea, vomiting Genitourinary: denies: dysuria Skin: reports: other (complains of redness on neck around trach with associated tenderness) Musculoskeletal: denies: pain, tenderness Neurological: denies: numbness, syncope Psychological: denies: anxiety - Vital signs BP: 124/75 HR: 121 RR: 20 Tmax: 98.4 Pox: 97% on RA Wt: 62.6 kg - Physical Exam Constitutional: NAD, awake, alert and oriented HEENT: normocephalic and atraumatic, PERRLA, no scleral icterus Neck: FROM, trachea midline, other (trach in place. Purulent drainage around ostomy w/additional draining sinus cephalad to trach. Area of erythema surrounding trach) Chest: no-tender to palpation Heart: normal S1/S2, no murmurs/rubs/gallops Lungs: CTAB, no respiratory distress Abdomen: soft, non-tender, bowel sounds present Musculoskeletal: normal structure, normal tone Neurological: no focal deficit, CN II-XII intact Skin: other (normal other than noted above) Heme/Lymphatic: no unusual bruising or bleeding Psychiatric: normal mood and affect, good judgment and insight FMR H&P: Results - Labs Result Diagrams: 02/03/18 01:16 02/03/18 01:16 Lab results: WBC 19.3 thou/uL (4.8-10.8) H 02/03/18 01:16 Hgb 13.7 g/dL (14.0-18.0) L 02/03/18 01:16 Hct 41.3 % (42.0-52.0) L 02/03/18 01:16 MCV 84.9 fl (80.0-94.0) 02/03/18 01:16 Plt Count 377 thou/uL (130-400) 02/03/18 01:16 Neutrophils % 85.9 % (42.0-75.0) H 02/03/18 01:16 Sodium 134 mmol/L (136-145) L 02/03/18 01:16 Potassium 4.5 mmol/L (3.5-5.1) 02/03/18 01:16 Chloride 97 mmol/L (98-107) L 02/03/18 01:16 Carbon Dioxide 28 mmol/L (22-29) 02/03/18 01:16 BUN 19 mg/dL (8.9-20.6) 02/03/18 01:16 Creatinine 1.12 mg/dL (0.6-1.3) 02/03/18 01:16 Glucose 212 mg/dL (70-105) H 02/03/18 01:16 Lactic Acid 2.3 mmol/L (0.5-2.2) H 02/03/18 01:16 Calcium 9.6 mg/dL (7.8-10.44) 02/03/18 01:16 Total Bilirubin 0.2 mg/dL (0.2-1.2) 02/03/18 01:16 AST 9 U/L (5-34) 02/03/18 01:16 ALT 8 U/L (8-55) 02/03/18 01:16 Alkaline Phosphatase 94 U/L (40-150) 02/03/18 01:16 Serum Total Protein 7.8 g/dL (6.0-8.3) 02/03/18 01:16 Albumin 4.1 g/dL (3.5-5.0) 02/03/18 01:16 - Radiology Interpretation Other Status: report reviewed by me (CT neck - soft tissue abscess anterior and inferior to thyroid cartilage. Small 6mm nodules in R lung) FMR H&P: A/P - Problem List (1) Sepsis Current Visit: Yes Status: Acute Priority: High Code(s): A41.9 - SEPSIS, UNSPECIFIED ORGANISM (2) Cellulitis and abscess of neck Current Visit: Yes Status: Acute Priority: High Code(s): L03.221 - CELLULITIS OF NECK; L02.11 - CUTANEOUS ABSCESS OF NECK (3) Squamous cell carcinoma of larynx Current Visit: Yes Status: Acute Priority: Medium Code(s): C32.9 - MALIGNANT NEOPLASM OF LARYNX, UNSPECIFIED (4) Lactic acid acidosis Current Visit: Yes Status: Acute Code(s): E87.2 - ACIDOSIS (5) Tachycardia Current Visit: Yes Status: Acute Code(s): R00.0 - TACHYCARDIA, UNSPECIFIED - Plan Sepsis secondary to cellulitis w/abscess - abscess ID's on CT - Wound and blood cx pending - continue zosyn and add cefepime for pseudomonal coverage, vanc for MRSA coverage. plan to step down abx after cx result - consult ENT, appreciate recommendation - IVF 30 ml/kg, then maintenance rate - NPO at midnight - CBC in am - admit to medicine SCC of larynx - pt scheduled to start radiation next week Lactic acidosis - repeat in am after IVF Tachycardia - 2/2 sepsis, follow vitals PPx SCD Diet NPO at midnight then Regular pending ENT recommendation Code Full Dispo: Pt currently stable. Treat infection empirically. Length of stay likely 48 hours pending possible surgical intervention FMR H&P: Upper Level - Pertinent history 32year old white male with a past medical history of squamous cell carcinoma of the larynx s/p tracheostomy placement 3 weeks. He reports swelling, redness, and yellowish drainage from tracheostomy site over the last few days. He was prescribed antibiotics on an outpatient basis but reports the redness and swelling continued to spread. He denies fever, chills, headache, shortness of breath, abdominal pain, nausea, vomiting, and diarrhea. He reports some pain. His ENT is Dr. Pro. His oncologist is Dr. Ash. He has no other medical problems or surgeries. He denies drug and alcohol use. Quit using tobacco about 3 weeks ago. - Pertinent findings Tmax 98.0 RR 18 HR 115 BP 122/77 O2 sats 98% on room air Wegith 62.6 kg Physical Exam General: NAD, AAxOx4 Eyes: EOMI, PERLL, nonicteric, conjunctiva clear ENT: MMM, oropharynx clear. Tracheostomy in place. CV: RRR, no m/r/g. Pulses full and equal in all 4 extremities Respiratory: CTA-B, no WRR. Nonlabored Abdomen: NT, ND, no guarding/rebound Extremities: No edema, equal movements bilaterally Skin: No rash or ulcer, no palpable lesions. Extensive tattoos. Erythema, swelling, and drainage from skin surrounding tracheostomy site. Neuro: CN II-XII intact. No focal deficits Psych: Mood and affect appropriate. Judgment and insight intact. - Plan Date/Time: 02/03/18 0424 IAris DO, have evaluated this patient and agree with findings/plan as outlined by psychology intern resident. Pertinent changes/additions are listed here. 32 year old white male presents with: 1) Sepsis 2/2 paratracheal abscess - Admit to medical. Continue iv fluids and antibiotics - will cover for Staph and Pseudomonas. Wound culture and blood culture ordered. Patient appears stable. Consult ENT in the morning. Repeat lactic acid. 2) Squamous cell carcinoma of the larynx - Consult ENT and consider consulting Dr. Ash in the morning 3) Hyperglycemia - May be 2/2 to infection. Monitor. 4) Code status - Full
[2018-02-03 05:53] LABS: Lactic Acid 1.4 mmol/L (0.5-2.2)
[2018-02-03] MEDS ORDERED: Morphine 4 MG/ML VIAL IV PRN (09:00)
[2018-02-03] MEDS ORDERED: Ondansetron HCl/PF 4 MG/2 ML Vial IVP PRN (09:01)
[2018-02-03] MEDS ORDERED: Ondansetron ODT 4 MG TAB PO PRN (09:01)
--- NOTE | 2018-02-03 09:16 | CT ---
PRELIMINARY REPORT/[facility]/EMERGENTY AFTER-HOURS PROCEDURE CT Neck With Intravenous Contrast EXAM DATE/TIME: Exam ordered 02/03/2018 2:50 AM CLINICAL HISTORY: 32 years old, male; Pain; Throat pain; Prior surgery; Surgery date: <1 month; Surgery type: Trach; Pa tient HX: Painful trach TECHNIQUE: Axial computed tomography images of the neck with intravenous contrast. CONTRAST: 100 mL of ISOVUE administered intravenously. COMPARISON: No relevant prior studies available. FINDINGS: Nasopharynx: Normal. Oropharynx: Normal. No significant tonsillar enlargement. No peritonsillar abscess. Hypopharynx: Normal. Larynx: Normal. Normal epiglottis. Trachea: Normal. Retropharyngeal space: Normal. Submandibular/parotid glands: Normal. Glands are normal in size. Thyroid: Normal. No enlarged or calcified nodules. Bones/joints: No acute fracture. Soft tissues: There is a 1.7 x 0.8 x 2.3 cm rim enhancing collection anterior and inferior to the thy roid cartilage with surrounding inflammatory stranding suspicious for abscess. There is marked soft t issue thickening and there is extension of the abscess inferolaterally to the RIGHT with foci of air fluid seen within the subcutaneous tissues above the tracheostomy site. Vasculature: No acute findings. Lymph nodes: Normal. No lymphadenopathy. Lung apices: There are a few nonspecific mixed density nodules measuring 6 mm within the RIGHT upper lobe. Tubes, lines and devices: Tracheostomy tube is present. IMPRESSION: 1. Soft tissue abscess anterior and inferior to the thyroid cartilage as above. 2. Small mixed density RIGHT lung nodules measuring up to 6 mm, possibly reactive. Followup if clinic ally warranted. Thank you for allowing us to participate in the care of your patient. Dictated and Authenticated by: Zain Reed MD 02/03/2018 3:22 AM Central Time ([place] & [place]) FINAL REPORT EMERGENCY AFTER HOURS CT OF NECK PERFORMED WITH IV CONTRAST ENHANCEMENT: Date: 02/03/18 HISTORY: Throat pain. History of abscess. COMPARISON: 10/02/17 CT examination. FINDINGS: The visualized brain parenchyma is unremarkable. There is mucosal disease within the sphenoid air magaly ls and lesser changes of the ethmoid air cells. The parotid and submandibular glands are unremarkable. Parapharyngeal spaces appear clear. Tonsillar region is unremarkable. There is a tracheostomy tube in place. Thyroid gland is normal in appearance. The lung apices are jessie ar. There is a small, persistent midline fluid collection, substantially smaller than noted on the previo us examination. Midline component of this is small, measuring just slightly greater than 1.0 cm in gr eatest dimension. There is a small, less well defined fluid density collection slightly to the right of midline. It does have some air density associated with this. There is some extension into the soft tissues in the vocal cord region and some indurated soft tissue. IMPRESSION: Significant reduction in midline abscess. There is still a small abscess collection within the midlin e and a small foci of air and slightly less well defined fluid density collection in the right side o f the neck. There is also deeper extension with some induration of the soft tissues extending towards the vocal cord region. This report is in agreement with the preliminary report issued by [facility]. POS: SAGAR
[2018-02-03 09:32] VITALS: BMI 19.7
[2018-02-03] MEDS: Vancomycin HCl 1 GM in Premix Bag 1 BAG IVPB SCH ×2 (10:20→17:51)
[2018-02-03] MEDS: Sodium Chloride 0.9% 1,000 ML IV SCH ×3 (10:20→21:54)
[2018-02-03] MEDS: Cefepime 2 GM in Syringe 12.5 ML IVPB SCH ×2 (10:20→17:37)
--- NOTE | 2018-02-03 11:44 | HP ---
HISTORY OF PRESENT ILLNESS: I have reviewed the history and physical of Dr. Vasiliy Palafox. I have di scussed the case with him. I have agreed with his assessment and plan. Briefly, Mr. Da Silva is a 32-year-old white male patient who was diagnosed with squamous cell carcino ma of the larynx approximately 1 month ago. He presented with what appeared to be an infected trach site with sepsis. He has been admitted for broad spectrum antibiotics and consultation with ENT. PHYSICAL EXAMINATION: GENERAL APPEARANCE: Currently, he is resting quietly in no distress. VITAL SIGNS: His blood pressure is 130/80, his heart rate is 100, respirations 20. He is afebrile. His room air pulse ox is 97%. EAR, NOSE, AND THROAT: He does have a trach in place with a purulent drainage around his ostomy site with more drainage superior to the trach. There is an area of surrounding erythema. CARDIAC: His heart rhythm is regular, without gallop or murmur. LUNGS: Clear without rales or wheezes. ABDOMEN: Flat and soft without guarding, rebound or rigidity. EXTREMITIES: No focal deficits. He can move all extremities without difficulty. LABORATORY DATA: CBC: White count is 19,300, hemoglobin was 13.7, hematocrit 41.3 with an MCV of 84 .9. Chemistries: Sodium 134, potassium 4.5, chloride 97, bicarbonate 28, BUN 19, creatinine 1.12, r andom glucose 212. Lactic acid slightly elevated at 2.3. ASSESSMENT: Infected trach site with sepsis. PLAN: The patient has been admitted and is on broad spectrum antibiotics. We will consult with Ear, Nose and Throat as well. We will also check him for HIV and hepatitis C. We will monitor his gluco se level as he did come with elevated glucose of 212.
[2018-02-03 13:38] LABS: Hemoglobin A1c 5.1 % (4.0-6.0)
[2018-02-03] MEDS ORDERED: traMADol HCl 50 MG TAB PO PRN (13:40)
[2018-02-03 13:59] LABS: Syphilis Antibody Nonreactive (Nonreactive); Syphilis Antibody Index 0.02 S/CO (<1.00 Non-Reactive)
[2018-02-03 14:00] LABS: HIV (1/2) Antibody/Antigen Non-Reactive (NonReactive); Hep C IgG Ab Non-Reactive (NonReactive); Hep C Index 0.09 S/CO (0-0.79)
[2018-02-03] MEDS ORDERED: ISOVUE-370 76%-LOCM 1 ML ONE (15:48)
[2018-02-04] MEDS: Sodium Chloride 0.9% 1,000 ML IV SCH ×4 (01:43→23:30)
[2018-02-04] MEDS: Vancomycin HCl 1 GM in Premix Bag 1 BAG IVPB SCH ×2 (04:36→17:49)
[2018-02-04] MEDS: Cefepime 2 GM in Syringe 12.5 ML IVPB SCH ×2 (05:34→17:51)
[2018-02-04 05:51] LABS: #Eosinphils 0.1 thou/uL (0.0-0.7); #Lymphocytes 1.8 thou/uL (1.20-3.40); #Monocytes 0.5 thou/uL (0.11-0.59); #Neutrophils 4.8 thou/uL (1.40-6.50); %Basophils 0.4 % (0.0-1.0); %Lymphocytes 24.6 % (21.0-51.0); %Monocytes 6.8 % (0.0-10.0); %Neutrophils 66.3 % (42.0-75.0); Mean Corpuscular HGB CONC 33.3 g/dL (32.0-36.0); Mean Corpuscular Hemoglobin 29.7 pg (27.0-31.0); Mean Corpuscular Volume 88.9 fl (80.0-94.0); Mean Platelet Volume 6.7 fL (7.4-10.4); Platelet Count 261 thou/uL (130-400); RBC Distribution Width 13.2 % (11.5-14.5); Red Blood Cell (RBC) Count 4.39 mill/uL (4.70-6.10); White Blood Cell (WBC) Count 7.3 thou/uL (4.8-10.8)
[2018-02-04 06:30] LABS: Anion Gap 12 mmol/L (10-20); BUN (Urea Nitrogen) 12 mg/dL (8.9-20.6); Calc. Creatinine Clearance 125 mL/min (70-130); Calcium 9.2 mg/dL (7.8-10.44); Carbon Dioxide 23 mmol/L (22-29); Chloride 108 mmol/L (98-107); Estimated GFR-MDRD Greater than 90; Glucose 124 mg/dL (70-105); Potassium 4.6 mmol/L (3.5-5.1); Sodium 138 mmol/L (136-145)
--- NOTE | 2018-02-04 06:41 | PDOC.FM ---
- Subjective Subjective: Patient doing well this AM. No significant overnight events. Pain well controlled. Patient denies any chest pain, shortness of breath, N/V/D. - Objective MAR Reviewed: Yes Vital Signs & Weight: Vital Signs (12 hours) Temp Pulse Resp BP Pulse Ox 02/04/18 04:27 98.0 F 63 16 102/80 98 02/03/18 23:45 98.1 F 62 16 101/56 L 98 02/03/18 19:49 98.1 F 80 16 97 02/03/18 19:41 98.1 F 80 16 93/50 L 97 Weight Weight 64.138 kg I&O: 02/02/18 02/03/18 02/04/18 06:59 06:59 06:59 Intake Total 1372.5 Balance 1372.5 Result Diagrams: 02/04/18 05:36 02/04/18 05:36 EKG Reviewed by me: No Radiology Reviewed by me: Yes Phys Exam - Physical Examination Constitutional: NAD HEENT: moist MMs Neck: supple Respiratory: clear to auscultation bilateral Cardiovascular: RRR, no significant murmur Gastrointestinal: soft, non-tender, no distention, positive bowel sounds Musculoskeletal: no edema, pulses present Neurological: non-focal, moves all 4 limbs Psychiatric: normal affect Skin: cap refill <2 seconds Deviation from normal: Abscess with purulent drainage and induration surrounding trach site Dx/Plan (1) Cellulitis and abscess of neck Code(s): L03.221 - CELLULITIS OF NECK; L02.11 - CUTANEOUS ABSCESS OF NECK Status: Acute (2) Sepsis Code(s): A41.9 - SEPSIS, UNSPECIFIED ORGANISM Status: Resolved (3) Lactic acid acidosis Code(s): E87.2 - ACIDOSIS Status: Resolved (4) Squamous cell carcinoma of larynx Code(s): C32.9 - MALIGNANT NEOPLASM OF LARYNX, UNSPECIFIED Status: Chronic (5) Anxiety Code(s): F41.9 - ANXIETY DISORDER, UNSPECIFIED Status: Chronic (6) Tattoo of skin Code(s): L81.8 - OTHER SPECIFIED DISORDERS OF PIGMENTATION Status: Chronic - Plan Plan: Sepsis secondary to cellulitis w/abscess - abscess identified on CT neck - Wound and blood cx pending; preliminary report shows few gram positive rods - Continue vanc and cefepime with plans to step down antibiotic coverage once cultures result - ENT consulted; appreciate recommendations - IVF 30 ml/kg, then maintenance rate - Patient currently NPO pending ENT recs - WBC downtrending - Afebrile over night SCC of larynx - pt scheduled to start radiation next week Lactic acidosis, resolved Tachycardia, resolved Tattoo of skin - HIV non-reactive - RPR non-reactive - Hep C neg PPx: SCD Diet: NPO pending ENT recs Code: Full Dispo: Pt currently stable. Treat infection empirically. Length of stay likely 48 hours pending possible surgical intervention
--- NOTE | 2018-02-04 12:52 | ADD-PRG ---
DATE OF SERVICE: 02/04/2018 Please add this as an addendum to the note of Dr. Herlinda Enamorado. Mr. Da Silva is awake and alert this morning, in no distress. He has been seen by ENT and we apprecia te their recommendations. They have advised that we continue with antibiotic coverage. The abscess site seems to be in need of incision and drainage, and we will discuss this with ENT. In the event, we will continue his antibiotic treatments.
[2018-02-04 16:51] LABS: Vancomycin, Trough 8.4 ug/mL
[2018-02-04] MEDS: Vancomycin HCl 1.5 GM in Sodium Chloride 0.9% 250 ML 300 ML IVPB SCH (18:13)
[2018-02-04] MEDS ORDERED: Nicotine 21 MG PATCH TD SCH (22:00)
[2018-02-05] MEDS: Vancomycin HCl 1.5 GM in Sodium Chloride 0.9% 250 ML 300 ML IVPB SCH (02:09)
--- NOTE | 2018-02-05 06:00 | PDOC.FM ---
- Subjective Subjective: Patient doing well this AM. No significant overnight events. Patient endorses still have pain around the tracheostomy site, although the pain is improved from admission. He denies any fever, chills, chest pain, shortness of breath, or pain with swallowing. - Objective MAR Reviewed: Yes Vital Signs & Weight: Vital Signs (12 hours) Temp Pulse Resp BP Pulse Ox 02/04/18 20:00 99.0 F 75 16 96/58 L 98 Weight Admit Weight 64.138 kg Weight 64.138 kg I&O: 02/03/18 02/04/18 02/05/18 06:59 06:59 06:59 Intake Total 1372.5 2075 Balance 1372.5 2075 Result Diagrams: 02/04/18 05:36 02/04/18 05:36 EKG Reviewed by me: No Radiology Reviewed by me: Yes Phys Exam - Physical Examination Constitutional: NAD cachectic HEENT: moist MMs Neck: supple Respiratory: clear to auscultation bilateral Cardiovascular: RRR, no significant murmur Gastrointestinal: soft, no distention, positive bowel sounds Musculoskeletal: no edema, pulses present Neurological: non-focal, moves all 4 limbs Psychiatric: normal affect Deviation from normal: Fluctuant area of erythema above tracheostomy site. Tender to palpation. -: No active purulent drainage from site. Fluctuant. Dx/Plan (1) Cellulitis and abscess of neck Code(s): L03.221 - CELLULITIS OF NECK; L02.11 - CUTANEOUS ABSCESS OF NECK Status: Acute (2) Sepsis Code(s): A41.9 - SEPSIS, UNSPECIFIED ORGANISM Status: Resolved (3) Lactic acid acidosis Code(s): E87.2 - ACIDOSIS Status: Resolved (4) Squamous cell carcinoma of larynx Code(s): C32.9 - MALIGNANT NEOPLASM OF LARYNX, UNSPECIFIED Status: Chronic (5) Anxiety Code(s): F41.9 - ANXIETY DISORDER, UNSPECIFIED Status: Chronic (6) Tattoo of skin Code(s): L81.8 - OTHER SPECIFIED DISORDERS OF PIGMENTATION Status: Chronic - Plan Plan: Sepsis secondary to cellulitis w/abscess - abscess identified on CT neck; ENT reviewed images with physicians from [facility], and they presume this to be an extension of the cancer. Recommend more urgent chemo and radiation. - Wound and blood cx pending; preliminary report shows few gram positive rods - D/c Vanc and cefepime today; transition to oral antibiotics and d/c home per ENT. Close follow up with ENT with plans to start chemo and radiation as soon as possible. - ENT consulted; appreciate recommendations - d/c fluids - Afebrile over night - Radiation oncology recommendations include not doing I&D for fear that it will not heal. Plans to start radiation on . SCC of larynx - pt scheduled to start radiation next week Lactic acidosis, resolved Tachycardia, resolved Tattoo of skin - HIV non-reactive - RPR non-reactive - Hep C neg PPx: SCD's Diet: regular Code: Full Dispo: Pt currently stable. Plan for discharge home on oral antibiotics with close follow up for chemo and radiation per ENT and radiation onc recs.
[2018-02-05] MEDS: Cefepime 2 GM in Syringe 12.5 ML IVPB SCH (06:03)
[2018-02-05 08:36] VITALS: BP 98/58; TEMP 97.7
[2018-02-05] MEDS ORDERED: Nicotine 21 MG PATCH TD SCH (09:00)
[2018-02-05] MEDS ORDERED: Sulfameth/Trimethoprim DS 800-160mg TAB PO SCH (09:00)
--- NOTE | 2018-02-05 11:26 | ADD-PRG ---
DATE OF SERVICE: 02/05/2018 ADDENDUM This is an addendum to the note of Dr. Herlinda Enamorado. SUBJECTIVE: Mr. Da Silva appears well this morning. He will be discharged today for outpatient radio therapy. Radiotherapy felt it was best not to I&D the abscess as it would likely not heal given expo sure to radiation. Otherwise, Mr. Da Silva looks and feels improved and will be discharged.
== END 2018-02-05 14:15 | disposition home or self-care (01) | DRG 205 ==
LOC: ERS 00:35 → ERHOLD 04:01 → ONC 08:44
PROVIDERS: ADMIT Family Medicine; ATTEND Family Medicine
PROC: 0B21XFZ Change Tracheostomy Device in Trachea, External Approach (ICD-10-PCS; principal; 2018-02-03)
DX: J95.02 Infection of tracheostomy stoma (principal); A41.9 Sepsis, unspecified organism; E87.2 Acidosis; L02.11 Cutaneous abscess of neck; C32.9 Malignant neoplasm of larynx, unspecified; L81.8 Other specified disorders of pigmentation; F41.9 Anxiety disorder, unspecified; Z87.891 Personal history of nicotine dependence; R73.9 Hyperglycemia, unspecified
CPT/HCPCS: 36415; 36416; 70491; 80048; 80053; 80202; 83036; 83605; 85025; 86780; 86803; 87040; 87070; 87205; 87389; 96361; 96365; 96375; 97602; A4216; J0692; J2270; J2543; J3370; J7050

== ENCOUNTER 2018-02-13 08:51 | Day surgery (SDC) | payer SELFPAY ==
[2018-02-13] MEDS ORDERED: Ondansetron HCl/PF 4 MG/2 ML Vial SLOW IVP SCH (09:30)
[2018-02-13] MEDS ORDERED: Potassium Chloride 10 MEQ, Admixture Fee 1 EACH in Sodium Chloride 0.9% 500 ML IV SCH (09:30)
[2018-02-13] MEDS ORDERED: CISPLATIN IV SCH (09:30)
[2018-02-13] MEDS ORDERED: MANNITOL IV SCH (09:30)
[2018-02-13] MEDS ORDERED: SODIUM CHLORIDE IV SCH (09:30)
[2018-02-13] MEDS ORDERED: ADMIXTURE FEE IV SCH (09:30)
[2018-02-13] MEDS ORDERED: Sodium Chloride 0.9% 500 ML IVPB SCH (09:30)
[2018-02-13] MEDS ORDERED: Dexamethasone 10 MG/ML VIAL SLOW IVP SCH (09:30)
[2018-02-13] MEDS ORDERED: Dexamethasone 10 MG, Ondansetron 2MG/ML MDV 10 MG in Sodium Chloride 0.9% 50 ML IVPB SCH (09:45)
[2018-02-13] MEDS ORDERED: Sodium Chloride 0.9% 40 ML ONE (10:56)
[2018-02-13 14:16] VITALS: BP 120/64; TEMP 98.1
== END 2018-02-13 16:54 | disposition home or self-care (01) ==
LOC: ONC/OP 08:51
PROVIDERS: ATTEND Internal Medicine Hematology & Oncology
DX: Z51.11 Encounter for antineoplastic chemotherapy (principal); C32.8 Malignant neoplasm of overlapping sites of larynx; K21.9 Gastro-esophageal reflux disease without esophagitis; Z79.2 Long term (current) use of antibiotics; Z93.0 Tracheostomy status; Z95.828 Presence of other vascular implants and grafts; Z98.890 Other specified postprocedural states; Z87.891 Personal history of nicotine dependence
CPT/HCPCS: 96361; 96367; 96375; 96413; 96415; A4216; J1100; J1453; J2150; J2405; J3480; J7050; J9060

== ENCOUNTER 2018-02-14 10:31 | Day surgery (SDC) | payer OTHER, SELFPAY ==
[2018-02-13 13:29] VITALS: BMI 22.4
[2018-02-14] MEDS ORDERED: CEFAZOLIN/Water 2 GM/20 ML SYRINGE ONE (12:35)
[2018-02-14] MEDS ORDERED: Lidocaine 2% 10 ML INJ ONE (13:41)
[2018-02-14] MEDS ORDERED: Bupivacaine/Epinephrine 0.25% 30 ML VIAL ONE (13:41)
[2018-02-14] MEDS ORDERED: Fentanyl 100 MCG/2 ML VIAL ONE ×2 (13:50→16:31)
[2018-02-14] MEDS ORDERED: Midazolam HCl 2 mg/2 ml Vial ONE ×2 (13:50→16:31)
[2018-02-14] MEDS ORDERED: Propofol 500 MG/50 ML VIAL ONE (13:50)
[2018-02-14] MEDS ORDERED: Lidocaine 1% PF 5 ML VIAL ONE (16:05)
[2018-02-14] MEDS ORDERED: PROPOFOL 200 MG/20 ML VIAL ONE (16:05)
--- NOTE | 2018-02-17 15:27 | PDOC.OP ---
Operative Note - Operative Note Operative Note: PROCEDURE: Left subclavian MediPort placement with fluoroscopic guidance SURGEON: Curt Mera M.D. DATE OF PROCEDURE: 02/14/2018 PREOPERATIVE DIAGNOSIS: Stage IV laryngeal cancer POSTOPERATIVE DIAGNOSIS: Stage IV laryngeal cancer HISTORY: Patient is diagnosed with laryngeal cancer. Chemotherapy has been recommended and the oncologist has requested MediPort placement for this. OPERATIVE PROCEDURE IN DETAIL: After informed consent was obtained and appropriate preoperative antibiotics were administered, the patient was taken to the operating room and placed in supine position and monitored anesthesia care was administered. The patient was then placed in Trendelenburg position and the subclavian vein accessed easily on the first attempt with excellent flow of dark venous non-pulsatile blood. A wire threaded easily and was confirmed to be in the superior vena cava by fluoroscopy. Additional local anesthesia was infused to the skin and subcutaneous tissues lateral and inferior to the access site. The skin incision was extended from the wire laterally and a subcutaneous pocket developed inferiorly staying right on the pectoralis fascia. A Mediport was obtained and confirmed to fit in the subcutaneous pocket. This was secured inferiorly to the pectoralis fascia with a Prolene suture, which was clamped, but not tied. The dilator and sheath were then placed over the wire and the dilator and wire removed leaving the sheath in place. The clamped MediPort tubing was tunneled through the sheath, which was then split and removed leaving the MediPort tubing in place. The tubing was adjusted until the tip was confirmed by fluoroscopy to be in the superior vena cava just above the atrium. The tubing was clamped at the skin level and cut and the tubing secured to the port, which was then placed in the subcutaneous pocket. The previously placed suture was secured and two additional sutures were placed to fix the port in place within the pocket. The port was aspirated with the Salazar needle and had excellent flow of dark venous non-pulsatile blood and easily flushed without resistance. The subcutaneous tissues were closed with a running Monocryl suture, following which the skin was closed with a running subcuticular Monocryl suture. Dermabond dressings were placed and the hub was again accessed through the skin and confirmed to easily aspirate and easily flush. The course of the catheter was confirmed by fluoroscopy to be smooth with the tip appropriately located in the superior vena cava. The patient was taken her back to the day stay unit in good condition. Estimated blood loss was minimal. There were no complications. There were no specimens.
== END 2018-02-14 19:30 | disposition home or self-care (01) ==
LOC: SDC 10:31
PROVIDERS: ATTEND Surgery
PROC: 02HV33Z Insertion of Infusion Device into Superior Vena Cava, Percutaneous Approach (ICD-10-PCS; principal; 2018-02-14)
PROC: B518ZZA Fluoroscopy of Superior Vena Cava, Guidance (ICD-10-PCS; principal; 2018-02-14)
DX: C32.9 Malignant neoplasm of larynx, unspecified (principal); F17.210 Nicotine dependence, cigarettes, uncomplicated; Z93.0 Tracheostomy status
CPT/HCPCS: C1788; J1642; J2001; J2250; J2704; J3010

== ENCOUNTER 2018-02-20 08:59 | Day surgery (SDC) | payer SELFPAY ==
[2018-02-20] MEDS ORDERED: Sodium Chloride 0.9% 50 ML ONE (09:44)
[2018-02-20] MEDS ORDERED: ADMIXTURE FEE IVPB SCH (10:15)
[2018-02-20] MEDS ORDERED: Ondansetron HCl/PF 4 MG/2 ML Vial SLOW IVP SCH (10:15)
[2018-02-20] MEDS ORDERED: Potassium Chloride 10 MEQ, Admixture Fee 1 EACH in Sodium Chloride 0.9% 500 ML IV SCH (10:15)
[2018-02-20] MEDS ORDERED: FOSAPREPITANT DIMEGLUMINE IVPB SCH (10:15)
[2018-02-20] MEDS ORDERED: Dexamethasone 10 MG/ML VIAL SLOW IVP SCH (10:15)
[2018-02-20] MEDS ORDERED: SODIUM CHLORIDE IVPB SCH (10:15)
[2018-02-20] MEDS ORDERED: ADMIXTURE FEE IV SCH (10:30)
[2018-02-20] MEDS ORDERED: MANNITOL IV SCH (10:30)
[2018-02-20] MEDS ORDERED: SODIUM CHLORIDE IV SCH (10:30)
[2018-02-20] MEDS ORDERED: Ondansetron 2MG/ML MDV 10 MG, Dexamethasone 10 MG in Sodium Chloride 0.9% 50 ML IVPB SCH (10:30)
[2018-02-20] MEDS ORDERED: CISPLATIN IV SCH (10:30)
[2018-02-20 10:44] VITALS: BP 118/72; TEMP 98
== END 2018-02-20 14:16 | disposition home or self-care (01) ==
LOC: ONC/OP 08:59
PROVIDERS: ATTEND Internal Medicine Hematology & Oncology
DX: Z51.11 Encounter for antineoplastic chemotherapy (principal); C32.8 Malignant neoplasm of overlapping sites of larynx; K21.9 Gastro-esophageal reflux disease without esophagitis; Z79.2 Long term (current) use of antibiotics; Z93.0 Tracheostomy status; Z98.890 Other specified postprocedural states; Z87.891 Personal history of nicotine dependence
CPT/HCPCS: 96361; 96367; 96413; A4216; J1100; J1453; J1642; J2150; J2405; J3480; J7050; J9060

== ENCOUNTER 2018-02-27 09:32 | Day surgery (SDC) | payer SELFPAY ==
[2018-02-27] MEDS ORDERED: Sodium Chloride 0.9% 50 ML ONE (09:40)
[2018-02-27] MEDS ORDERED: Ondansetron HCl/PF 4 MG/2 ML Vial IVP SCH (09:45)
[2018-02-27] MEDS ORDERED: Potassium Chloride 10 MEQ, Admixture Fee 1 EACH in Sodium Chloride 0.9% 500 ML IV SCH (09:45)
[2018-02-27] MEDS ORDERED: Dexamethasone 10 MG/ML VIAL SLOW IVP SCH (09:45)
[2018-02-27] MEDS ORDERED: CISPLATIN IV SCH (10:00)
[2018-02-27] MEDS ORDERED: MANNITOL IV SCH (10:00)
[2018-02-27] MEDS ORDERED: ADMIXTURE FEE IV SCH (10:00)
[2018-02-27] MEDS ORDERED: Dexamethasone 10 MG, Ondansetron 2MG/ML MDV 10 MG in Sodium Chloride 0.9% 50 ML IVPB SCH (10:00)
[2018-02-27] MEDS ORDERED: SODIUM CHLORIDE IV SCH (10:00)
[2018-02-27 10:14] VITALS: BP 102/58; TEMP 98
== END 2018-02-27 14:33 | disposition home or self-care (01) ==
LOC: ONC/OP 09:32
PROVIDERS: ATTEND Internal Medicine Hematology & Oncology
DX: Z51.11 Encounter for antineoplastic chemotherapy (principal); C32.8 Malignant neoplasm of overlapping sites of larynx; Z93.0 Tracheostomy status; Z87.891 Personal history of nicotine dependence
CPT/HCPCS: 96361; 96367; 96413; A4216; J1100; J1453; J1642; J2150; J2405; J7050; J9060

== ENCOUNTER 2018-03-06 10:01 | Day surgery (SDC) | payer SELFPAY ==
[2018-03-06] MEDS ORDERED: Sodium Chloride 0.9% 40 ML ONE (10:34)
[2018-03-06] MEDS ORDERED: MANNITOL IV SCH (11:00)
[2018-03-06] MEDS ORDERED: Ondansetron HCl/PF 4 MG/2 ML Vial IVP SCH (11:00)
[2018-03-06] MEDS ORDERED: Dexamethasone 10 MG/ML VIAL SLOW IVP SCH (11:00)
[2018-03-06] MEDS ORDERED: SODIUM CHLORIDE IV SCH (11:00)
[2018-03-06] MEDS ORDERED: Potassium Chloride 10 MEQ, Admixture Fee 1 EACH in Sodium Chloride 0.9% 500 ML IV SCH (11:00)
[2018-03-06] MEDS ORDERED: CISPLATIN IV SCH (11:00)
[2018-03-06] MEDS ORDERED: ADMIXTURE FEE IV SCH (11:00)
[2018-03-06 11:22] VITALS: BP 120/70; TEMP 97.9
== END 2018-03-06 14:48 | disposition home or self-care (01) ==
LOC: ONC/OP 10:01
PROVIDERS: ATTEND Internal Medicine Hematology & Oncology
DX: Z51.11 Encounter for antineoplastic chemotherapy (principal); C32.8 Malignant neoplasm of overlapping sites of larynx; K21.9 Gastro-esophageal reflux disease without esophagitis
CPT/HCPCS: 96361; 96367; 96375; 96413; A4216; J1100; J1453; J1642; J2150; J2405; J7050; J9060

== ENCOUNTER 2018-03-13 09:57 | Day surgery (SDC) | payer SELFPAY ==
[2018-03-13] MEDS ORDERED: Sodium Chloride 0.9% 50 ML ONE (10:04)
[2018-03-13] MEDS ORDERED: Ondansetron HCl/PF 4 MG/2 ML Vial IVP SCH (10:45)
[2018-03-13] MEDS ORDERED: Dexamethasone 10 MG/ML VIAL SLOW IVP SCH (10:45)
[2018-03-13 10:59] VITALS: BP 108/63; TEMP 97.7
[2018-03-13] MEDS ORDERED: Potassium Chloride 10 MEQ, Admixture Fee 1 EACH in Sodium Chloride 0.9% 500 ML IV SCH (11:00)
[2018-03-13] MEDS ORDERED: SODIUM CHLORIDE IV SCH (11:30)
[2018-03-13] MEDS ORDERED: ADMIXTURE FEE IV SCH (11:30)
[2018-03-13] MEDS ORDERED: MANNITOL IV SCH (11:30)
[2018-03-13] MEDS ORDERED: CISPLATIN IV SCH (11:30)
== END 2018-03-13 15:16 | disposition home or self-care (01) ==
LOC: ONC/OP 09:57
PROVIDERS: ATTEND Internal Medicine Hematology & Oncology
DX: Z51.11 Encounter for antineoplastic chemotherapy (principal); C32.8 Malignant neoplasm of overlapping sites of larynx; Z87.891 Personal history of nicotine dependence
CPT/HCPCS: 96361; 96367; 96375; 96413; A4216; J1100; J1453; J1642; J2150; J7050; J9060

== ENCOUNTER 2018-03-20 09:41 | Day surgery (SDC) | payer OTHER, SELFPAY ==
[2018-03-20] MEDS ORDERED: Sodium Chloride 0.9% 30 ML ONE (09:53)
[2018-03-20 10:14] VITALS: BP 119/70; TEMP 97.7
[2018-03-20] MEDS ORDERED: SODIUM CHLORIDE 0.9% IV SCH (10:15)
[2018-03-20] MEDS ORDERED: Ondansetron HCl/PF 4 MG/2 ML Vial IVP SCH (10:15)
[2018-03-20] MEDS ORDERED: CISPLATIN IV SCH (10:15)
[2018-03-20] MEDS ORDERED: Dexamethasone 10 MG, Ondansetron 2MG/ML MDV 10 MG in Sodium Chloride 0.9% 50 ML IVPB SCH (10:15)
[2018-03-20] MEDS ORDERED: Dexamethasone 10 MG/ML VIAL SLOW IVP SCH (10:15)
[2018-03-20] MEDS ORDERED: MANNITOL IV SCH (10:15)
== END 2018-03-20 14:29 | disposition home or self-care (01) ==
LOC: ONC/OP 09:41
PROVIDERS: ATTEND Internal Medicine Hematology & Oncology
DX: Z51.11 Encounter for antineoplastic chemotherapy (principal); C32.8 Malignant neoplasm of overlapping sites of larynx; K21.9 Gastro-esophageal reflux disease without esophagitis; Z87.891 Personal history of nicotine dependence
CPT/HCPCS: 96361; 96367; 96375; 96413; A4216; J1100; J1453; J1642; J2150; J2405; J3480; J7050; J9060

== ENCOUNTER 2018-03-27 09:09 | Day surgery (SDC) | payer SELFPAY ==
[2018-03-27] MEDS ORDERED: Sodium Chloride 0.9% 30 ML ONE (09:25)
[2018-03-27] MEDS ORDERED: Dexamethasone 10 MG/ML VIAL SLOW IVP SCH (09:30)
[2018-03-27] MEDS ORDERED: Ondansetron HCl/PF 4 MG/2 ML Vial IVP SCH (09:30)
[2018-03-27] MEDS ORDERED: Dexamethasone 10 MG, Ondansetron 2MG/ML MDV 10 MG in Sodium Chloride 0.9% 50 ML IVPB SCH (09:45)
[2018-03-27] MEDS ORDERED: SODIUM CHLORIDE 0.9% IV SCH (09:45)
[2018-03-27] MEDS ORDERED: MANNITOL IV SCH (09:45)
[2018-03-27] MEDS ORDERED: CISPLATIN IV SCH (09:45)
[2018-03-27 10:10] VITALS: BP 98/53; TEMP 98.2
== END 2018-03-27 15:33 | disposition home or self-care (01) ==
LOC: ONC/OP 09:09
PROVIDERS: ATTEND Internal Medicine Hematology & Oncology
DX: Z51.11 Encounter for antineoplastic chemotherapy (principal); C32.8 Malignant neoplasm of overlapping sites of larynx; K21.9 Gastro-esophageal reflux disease without esophagitis; Z87.891 Personal history of nicotine dependence
CPT/HCPCS: 96361; 96367; 96413; A4216; J1100; J1453; J1642; J2150; J2405; J7050; J9060

== ENCOUNTER 2018-04-03 12:48 | Emergency (ER) | payer SELFPAY ==
[2018-04-03 13:27] LABS: #Basophils 0.1 thou/uL (0.0-0.2); #Lymphocytes 0.1 thou/uL (1.20-3.40); #Monocytes 0.5 thou/uL (0.11-0.59); #Neutrophils 5.5 thou/uL (1.40-6.50); %Basophils 1.1 % (0.0-1.0); %Eosinophils 0.2 % (0.0-10.0); %Lymphocytes 2.2 % (21.0-51.0); %Monocytes 8.5 % (0.0-10.0); Hemoglobin 12.5 g/dL (14.0-18.0); Mean Corpuscular HGB CONC 35.1 g/dL (32.0-36.0); Mean Corpuscular Hemoglobin 30.5 pg (27.0-31.0); Mean Corpuscular Volume 86.8 fl (80.0-94.0); Mean Platelet Volume 6.5 fL (7.4-10.4); Platelet Count 168 thou/uL (130-400); RBC Distribution Width 16.7 % (11.5-14.5); Red Blood Cell (RBC) Count 4.09 mill/uL (4.70-6.10); White Blood Cell (WBC) Count 6.3 thou/uL (4.8-10.8)
[2018-04-03 13:47] LABS: ALT (SGPT) 13 U/L (8-55); AST (SGOT) 16 U/L (5-34); Albumin 4.3 g/dL (3.5-5.0); Alkaline Phosphatase 92 U/L (40-150); Anion Gap 14 mmol/L (10-20); BUN (Urea Nitrogen) 30 mg/dL (8.9-20.6); Bilirubin, Total 0.5 mg/dL (0.2-1.2); Calc. Creatinine Clearance 0 mL/min (70-130); Calcium 9.5 mg/dL (7.8-10.44); Carbon Dioxide 27 mmol/L (22-29); Chloride 98 mmol/L (98-107); Estimated GFR-MDRD 82; Globulin 3.2 g/dL (2.4-3.5); Glucose 103 mg/dL (70-105); Potassium 4.6 mmol/L (3.5-5.1); Protein, Total 7.5 g/dL (6.0-8.3); Sodium 134 mmol/L (136-145)
[2018-04-03 13:50] LABS: CKMB 0.5 ng/mL (0-6.6); Troponin I Less than 0.010 ng/mL (< 0.028)
--- NOTE | 2018-04-03 14:44 | CT ---
CT OF THE BRAIN WITHOUT CONTRAST: Date: 04/03/18 COMPARISON: None. HISTORY: Weakness and decreased appetite for 3 weeks. Headache after fall. TECHNIQUE: Multiple contiguous axial images were obtained in a CT of the brain without contrast. FINDINGS: The brain is normal in morphology and attenuation without focal lesions or confluent areas of infarct ion. There is no evidence of hydrocephalus, intracranial hemorrhage, or extra-axial fluid collection. The calvarium and overlying soft tissues are unremarkable. The visualized paranasal sinuses and masto id air cells are well aerated. IMPRESSION: No evidence of acute intracranial abnormality. POS: [facility]
== END 2018-04-03 15:47 | disposition home or self-care (01) ==
LOC: ERS 12:48
DX: R11.2 Nausea with vomiting, unspecified (principal); F41.9 Anxiety disorder, unspecified; Z87.891 Personal history of nicotine dependence
CPT/HCPCS: 70450; 80053; 82553; 84484; 85025; 93005; 96360

== ENCOUNTER → 2018-05-20 | Day surgery (SDC) | payer MEDICAID ==
--- NOTE | 2018-05-20 16:55 | PET ---
RADIONUCLIDE PET SCAN WITH CT ATTENUATION CORRECTION 05/20/18 HISTORY: Laryngeal cancer. Initial staging. FINDINGS: Physiologic uptake of radiotracer is present throughout the enteric system and along each urinary tra ct. At the level of the larynx, circumferential uptake shows a maximum SUV of 7.2. No hypermetabolic activity is associated with the cervical lymph nodes. Physiologic muscular uptake is apparent within the tongue and shoulder musculature. No distant areas of abnormal radiotracer uptake are apparent. Nondiagnostic CT attenuation correction images show left subclavian Port-A-Cath. Mild degenerative changes lower lumbar spine. IMPRESSION: Hypermetabolic activity limited to the larynx and immediately surrounding tissues. this could be rela lane to surgery, treatment, or residual neoplastic process. No evidence of regional joey involvement or distal metastases. POS: [facility]
--- NOTE | 2018-05-20 17:56 | CT ---
POSTCONTRAST SOFT TISSUE NECK CT: Date: 05/20/18 HISTORY: Laryngeal cancer. History of radiation therapy and chemotherapy treatments. Patient has tracheostomy. COMPARISON: 02/03/18. CORRELATION: PET imaging performed on 05/20/18. TECHNIQUE: Postcontrast soft tissue neck CT is performed in the axial plane. Reformatted images are submitted fo r interpretation. FINDINGS: There is left sphenoid sinus disease. A small mucus retention cyst in the right maxillary sinus is no lane. Adequate aeration of the mastoid air cells. Nasopharynx, oral cavity, and hypopharynx have an overall appearance. No mucosal abnormality. The sup raglottic, glottic, and subglottic larynx are unremarkable. No obvious laryngeal cancer or mass. The arytenoid and cricothyroid cartilages are unremarkable. Thyroid cartilage is also unremarkable. Hyoid bone has a normal appearance. Symmetric attenuation of the submandibular and parotid glands. Symmetric attenuation of the thyroid g land. Symmetric attenuation of the sternocleidomastoid muscles. No evidence of lymphadenopathy by size crit eria. Cervical spine vertebral body height is maintained. There is no cervical spine fracture. Upper thorac ic spine is also unremarkable. There is no prevertebral soft tissue swelling. Central spinal canal and neural foramina are grossly p atent. Upper mediastinum and lung apices are unremarkable. The previously noted mass involving the anterior aspect of the left and right larynx, as well as soft tissue changes in the anterior right neck, are no longer evident. IMPRESSION: No CT evidence of significant residual tumor or mass. Direct visualization is recommended. Reference PET exam performed on same day is also recommended. The previously noted abscess in the anterior righ t midline soft tissues is not evident. POS: [facility]
== END ==
LOC: PET 13:07 → CT 13:08
PROVIDERS: ATTEND Specialist
DX: C32.9 Malignant neoplasm of larynx, unspecified (principal); Z92.21 Personal history of antineoplastic chemotherapy; Z92.3 Personal history of irradiation; Z93.0 Tracheostomy status; Z79.2 Long term (current) use of antibiotics
CPT/HCPCS: 70491; 78815; A9552

== ENCOUNTER 2023-05-31 06:59 | Emergency (ER) | payer SELFPAY ==
[2023-05-31 07:13] LABS: #Basophils 0.1 thou/uL (0.0-0.2); #Eosinphils 0.3 thou/uL (0.0-0.7); #Monocytes 0.7 thou/uL (0.11-0.59); #Neutrophils 5.8 thou/uL (1.40-6.50); %Basophils 0.7 % (0.0-1.0); %Eosinophils 3.9 % (0.0-10.0); %Lymphocytes 16.2 % (21.0-51.0); %Monocytes 8.7 % (0.0-10.0); %Neutrophils 70.3 % (42.0-75.0); Hematocrit 34.7 % (42.0-52.0); Mean Corpuscular HGB CONC 34.6 g/dL (32.0-36.0); Mean Corpuscular Hemoglobin 29.9 pg (27.0-31.0); Mean Corpuscular Volume 86.3 fl (78.0-98.0); Mean Platelet Volume 9.5 fL (7.4-10.4); Platelet Count 190 10x3/uL (130-400); Red Blood Cell (RBC) Count 4.02 mill/uL (4.70-6.10); White Blood Cell (WBC) Count 8.3 10x3/uL (4.8-10.8)
[2023-05-31] MEDS ORDERED: Boostrix 0.5 ML (Tdap) VIAL (>/=7 yrs of age) ONE (07:20)
[2023-05-31 07:24] LABS: INR-International Normal Ratio 1.1; PTT 27.7 sec (22.9-36.1); Prothrombin Time 14.2 sec (12.0-14.7)
[2023-05-31 07:30] LABS: ALT (SGPT) 12 U/L (8-55); AST (SGOT) 24 U/L (5-34); Albumin 3.5 g/dL (3.5-5.0); Alkaline Phosphatase 66 U/L (40-110); Anion Gap 12 mmol/L (10-20); BUN (Urea Nitrogen) 18 mg/dL (8.9-20.6); Bilirubin, Total 0.2 mg/dL (0.2-1.2); Calc. Creatinine Clearance 0 mL/min (70-130); Calcium 8.5 mg/dL (7.8-10.44); Carbon Dioxide 23 mmol/L (22-29); Chloride 107 mmol/L (98-107); Estimated GFR 77; Globulin 2.4 g/dL (2.4-3.5); Glucose 119 mg/dL (70-105); Potassium 3.4 mmol/L (3.5-5.1); Protein, Total 5.9 g/dL (6.0-8.3); Sodium 139 mmol/L (136-145)
[2023-05-31] MEDS ORDERED: Ketorolac Tromethamine 30 MG/ML VIAL ONE (07:53)
== END 2023-05-31 11:11 | disposition home or self-care (01) ==
LOC: ERS 06:59
DX: S71.131A Puncture wound without foreign body, right thigh, initial encounter (principal); F17.210 Nicotine dependence, cigarettes, uncomplicated; W34.00XA Accidental discharge from unspecified firearms or gun, initial encounter; Z23 Encounter for immunization
CPT/HCPCS: 36415; 36416; 72170; 80053; 83605; 85025; 85610; 85730; 86850; 86900; 86901; 90471; 90715; 96374; G0390; J1885